=== PATIENT | male | born 1940 | race Caucasian/White ===

== ENCOUNTER 2021-02-24 15:00 | Outpatient (RCR) | payer MEDICARE, SELFPAY ==
[2021-02-03 10:43] VITALS: BP 174/93; PULSE 79; RESP 18; TEMP 36.1
--- NOTE | 2021-02-03 13:07 | HP.PCM_ITS ---
History of Present Illness Date of Service: 02/03/21 Chief Complaint: Nonhealing venous leg ulcers right lower extremity and left foot History of Wound: This is an 80-year-old male who presents to the wound healing center today with complaint of nonhealing bilateral lower extremity ulcers. He does have a past medical history significant for CAD, hyperlipidemia, hypertension, and hypothyroidism. He states that his wounds to his bilateral lower extremities have been present since August 2020 after he was on a blood thinner for recurrent DVT and fell. He states that he was taken off the blood thinner and is now on aspirin 325 mg daily and has had issues with his ulcers to his lower extremities not healing. He also brings up worsening lower extremity edema that now goes up into his thighs. He states that he is more short of breath with exertion and he notes orthopnea as well. 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 He states he is consistent with his Lasix therapy. He denies any other acute concerns. For wound care he has been utilizing covering the site with Neosporin, gauze, and Umesh wraps. He notes a large amount of clear drainage. Past medical, family, and social history reviewed and not pertinent to the current visit and all other systems reviewed and negative with exception of those listed above. [facility] Medical History (Updated 02/03/21 @ 13:22 by Vance Her NP, [employer]) Bilateral lower extremity edema Non-healing ulcer of left foot Venous ulcer of right leg Social History Smoking Status: Never smoker ROS ROS Narrative Negative x10 systems with exception of those listed above Vital Signs Vital Signs Vital Signs: 02/03/21 10:43 Temperature 97.0 F L Temperature Source Temporal Pulse Rate 79 Respiratory Rate 18 Blood Pressure 174/93 H Blood Pressure Mean 120 Blood Pressure Source Monitor Blood Pressure Position Sitting Blood Pressure Location Left Arm Oxygen Delivery Method Room Air Physical Exam Const alert, oriented x3, no apparent distress, healthy appearing and well nourished General Appearance: cooperative Exam Limitations: no limitations HEENT normocephalic Head and Scalp: normal to inspection Mouth: oral and palatal mucosa normal Eyes General Eye: normal appearance of both eyes Resp normal air movement Effort and Inspection: able to speak in complete sentences Auscultation: crackles bilateral Cardio regular rate, regular rhythm, S1 normal heart sound, S2 normal heart sound, no murmurs and peripheral pulses 2+ throughout Palpation: normal PMI Rate: regular rate Heart Sounds: S1 normal and S2 normal GI normal to inspection, nondistended, normoactive bowel sounds, soft to palpation, non-tender and non-distended Palpation: soft Extremity normal to inspection and full ROM General Extremity: normal exam except as noted Skin Skin Narrative: 4+ pitting edema to the bilateral lower extremities which extends above the knees, wounds present to the right lower extremity and left dorsal foot with large amount of adherent slough and there is undermining present as well, no surrounding erythema but there is large amounts of serous drainage. Chronic venous changes present to bilateral lower extremities as well. Dorsal pedis pulses present 2+ Neuro oriented x3 and moves all extremities Sensorium / Orientation: awake, alert, oriented to person, oriented to place and oriented to time Psych mental status grossly normal, thought process normal and denies hallucinations Appearance: grossly normal Attitude: calm Activity / Motor Behavior: appropriate eye contact Speech: normal speech Thought Process: normal thought process Thought Content: normal thought content Attention / Concentration: attention grossly intact Insight: insight good Judgement: judgement good Debridement Note Debridement Note Post-Debridement Measurements and Additional Note: Post-Debridement Measurements/Treatment - Nurse 1 - General Ulcer Assessment Start: 02/03/21 10:41 Freq: Status: Active Protocol: BENJA Activity Type Activity Date Activity User E-Sign Co-Sign Detail Recorded Client Recorded Date Recorded By Document 02/03/21 10:43 IL [id number] 02/03/21 10:52 [place] 02/03/21 10:43 - Today's Visit Information Type of service Initial Visit Arrival Mode Walker Accompanied by self Patient Identification Verified (Name & Yes ) Safety Precautions Fall Prevention Vital Signs Temperature (97.8 F-99.1 F) 97.0 F L Temperature Source Temporal Pulse Rate (60-100) 79 Pulse Location Monitor Respiratory Rate (12-18) 18 Respiratory rate source Observation Oxygen Delivery Method Room Air Blood Pressure (90/60-120/80) 174/93 H Blood Pressure Mean 120 Source Monitor Position Sitting Blood Pressure Location Left Arm History Since Last Visit- (Skip if this is Patient's initial visit) Left Footwear Slipper Right Footwear Slipper - Nurse 1 - General Ulcer Measurement Start: 02/03/21 10:41 Freq: Status: Active Protocol: Activity Type Activity Date Activity User E-Sign Co-Sign Detail Recorded Client Recorded Date Recorded By Document 02/03/21 10:43 IL [id number] 02/03/21 10:52 [place] 02/03/21 10:43 Wound Center Nurse 1 #2 Left dorsal foot -Current Size (cm) - Length 2 -Current Size (cm) - Width 2.6 -Current Size (cm) - Depth 0.1 -Total Square Cm 5.2 -Date of Last Picture (Recall this 02/03/21 field) -Photo Taken Yes -Epithelialization None Present -Tunneling No -Exudate Amt Medium -Exudate Type Serosanguineous -Wound Margin Flat & Intact -Granulation Amt Large (67-100%) -Granulation Quality Pale,[place] -Necrosis Amt Small (1-33%) -Necrotic Tissue Type Adherent Slough -Texture (Nicolasa-wound Skin Appearance) Assessed, Localized Edema -Moisture (Nicolasa-wound Skin Appearance) Assessed, Maceration -Color (Nicolasa-wound Skin Appearance) Assessed -Temperature (Nicolasa-wound Skin No Abnormality Appearance) (Pt Warm) -Tenderness on Palpation (Nicolasa-wound No Skin Appearance) -Ulcer Cleansing Wound Cleanser -Foul Odor after Cleansing No -Anesthetic Used 4% Lidocaine Solution #1 Right Knee -Current Size (cm) - Length 3.5 -Current Size (cm) - Width 3.5 -Current Size (cm) - Depth 0.1 -Total Square Cm 12.25 -Date of Last Picture (Recall this 02/03/21 field) -Photo Taken Yes -Tunneling Position (O'clock) 10 -Tunneling Distance (cm) 1.3 -Tunneling Position #2 (O'clock) 2 -Tunneling Distance #2 (cm) 0.5 -Exudate Amt Medium -Exudate Type Serosanguineous -Wound Margin Flat & Intact -Granulation Amt Large (67-100%) -Granulation Quality Pale,[place] -Necrosis Amt Small (1-33%) -Necrotic Tissue Type Adherent Slough -Texture (Nicolasa-wound Skin Appearance) Assessed, Localized Edema -Moisture (Nicolasa-wound Skin Appearance) Assessed -Color (Nicolasa-wound Skin Appearance) Assessed -Temperature (Nicolasa-wound Skin No Abnormality Appearance) (Pt Warm) -Tenderness on Palpation (Nicolasa-wound No Skin Appearance) -Ulcer Cleansing Wound Cleanser -Foul Odor after Cleansing No -Anesthetic Used 4% Lidocaine Solution Lower Limb Edema Present Yes Right Calf (cm) 53.5 Right Ankle (cm) 30 Left Calf (cm) 50.5 Left Ankle (cm) 30 WC - Nurse 2 - General Ulcer CM Notes Start: 02/03/21 10:41 Freq: Status: Active Protocol: Activity Type Activity Date Activity User E-Sign Co-Sign Detail Recorded Client Recorded Date Recorded By Document 02/03/21 12:38 PL [id number] 02/03/21 12:40 PL 02/03/21 12:38 Wound Center Nurse 2 #2 Left dorsal foot -Time 11:03 -Correct Patient Yes -Correct Side, Site, Position Yes -Correct Procedure Yes -Procedure Performed Yes -Type of Procedure Debridement -Clinical Debridement Subcutaneous -Tissue Removed Subcutaneous -Post Debridement (cm) - Length 2.3 -Post Debridement (cm) - Width 2.7 -Post Debridement (cm) - Depth 0.6 -Total Square (Post) (cm) 6.21 -Area of Debridement (cm) - Length 2.3 -Area of Debridement (cm) - Width 2.7 -Total Square (Area) (cm) 6.21 -Undermining/Tunneling No -Undermining/Tunneling Starts (O'clock 1 ) -Undermining/Tunneling Ends (O'clock) 1 -Maximum Distance (cm) 1.0 -Circular Undermining No -Wound/Ulcer Outcome Not Healed -Ulcer Cleansing Rinsed/ Irrigated with Saline -Foul Odor after Cleansing No -Bioengineered Tissue No -Debridement - Subq, 1st 20sq cm Yes #1 Right Knee -Time 11:03 -Correct Patient Yes -Correct Side, Site, Position Yes -Correct Procedure Yes -Procedure Performed Yes -Type of Procedure Debridement -Clinical Debridement Subcutaneous -Tissue Removed Subcutaneous -Post Debridement (cm) - Length 3.7 -Post Debridement (cm) - Width 3.5 -Post Debridement (cm) - Depth 0.9 -Total Square (Post) (cm) 12.95 -Area of Debridement (cm) - Length 3.7 -Area of Debridement (cm) - Width 3.5 -Total Square (Area) (cm) 12.95 -Tunneling No -Undermining/Tunneling No -Circular Undermining No -Wound/Ulcer Outcome Not Healed -Ulcer Cleansing Rinsed/ Irrigated with Saline -Foul Odor after Cleansing No -Bioengineered Tissue No -Debridement - Subq, 1st 20sq cm No Pain Scale: 0-10 Numeric Is Patient Pain Free? Yes WC - Nurse 3 - General Ulcer D/C NN Start: 02/03/21 10:41 Freq: Status: Active Protocol: Activity Type Activity Date Activity User E-Sign Co-Sign Detail Recorded Client Recorded Date Recorded By Document 02/03/21 11:24 ML [id number] 02/03/21 11:38 ML 02/03/21 11:24 Wound Care Nurse 3 #2 Left dorsal foot -Ulcer Cleansing Rinsed/ Irrigated with Saline -Foul Odor after Cleansing No -Primary Dressing Applied Silvercel -Primary Dressing Covered/Secured with Dry Gauze, Secured with Tape -Silvercel 1 #1 Right Knee -Ulcer Cleansing Rinsed/ Irrigated with Saline -Foul Odor after Cleansing No -Primary Dressing Applied Silvercel -Primary Dressing Covered/Secured with Dry Gauze & Roll Gauze, Secured with Tape -Silvercel 0 Right -Size of Tubigrip Used Size F -Size F ($) 2 Left -Tubular Bandage Double Layer -Size of Tubigrip Used Size F -Size F ($) 2 WC - Visit Discharge Discharge Condition Stable Ambulatory Status Ambulatory Medication Reconcilliation completed & No provided to patient/care provider Clinical Summary of Care Provided Yes Additional Wound Wound debrided: Right venous leg ulcer, left foot ulcer Type of Debridement: Excisional debridement Anesthesia Used: 5% Lidocaine Gel Depth: Down to and including healthy tissue and in the subcutaneous layer Percentage of wound debrided: 100 Instrument Used: 5mm curette Tissue Removed: Slough and devitalized tissue Severity: Fat Layer Exposed Amount of bleeding with debridement: Mild Bleeding Controlled with: Pressure Patient tolerated procedure: Patient tolerated procedure well Charges/Coding Visit Charges Office Visits / Consults: [id number] OV L4 Est Procedures Integumentary [id number]: [id number] Marnie subq tissue 20 sq cm/< Assessment/Plan Assessment/Plan (1) Venous ulcer of right leg: CODE(S): I83.019 - Varicose veins of right lower extremity with ulcer of unspecified site; L97.919 - Non-pressure chronic ulcer of unspecified part of right lower leg with unspecified severity (2) Non-healing ulcer of left foot: CODE(S): L97.529 - Non-pressure chronic ulcer of other part of left foot with unspecified severity (3) Bilateral lower extremity edema: CODE(S): R60.0 - Localized edema (4) CAD (coronary artery disease): CODE(S): I25.10 - Atherosclerotic heart disease of [place] coronary artery without angina pectoris (5) Hyperlipidemia: CODE(S): E78.5 - Hyperlipidemia, unspecified (6) Benign essential hypertension: CODE(S): I10 - Essential (primary) hypertension PLAN: Debridement performed today in clinic as annotated above. Silver cell applied. At home wound-care instructions: Silver cell moistened cover with gauze, Change dressing once daily or more frequently as needed due to contamination. Wash wounds daily with antibacterial soap and water, rinse and dry thoroughly before each dressing change. Compression: Double layer Tubigrip's for compression Off-loading: The patient was instructed to avoid pressure and friction on the affected areas. Reposition every 2 hours at minimum. Avoid prolonged standing and/or dangling of legs. When seated, feet should be elevated at chest level. Frequent ambulation is encouraged. Diet: Patient encouraged to increase protein intake while taking caution to avoid high carbohydrate and/or sugar intake. Patient is a non-smoker Labs/cultures/imaging: Cultures ordered and collected today. Routine baseline lab work ordered, BNP ordered. Vascular studies ordered. Follow-up: Return to clinic in 1 week for re-evaluation. Given the fact that patient is complaining of orthopnea, worsening lower extremity edema, and also worsening shortness of breath I am concerned that his symptoms may be cardiac related, his blood pressure was also elevated at 170/93. He was referred to the emergency department. He states that he will have someone take him to [facility]. Return sooner or report to the emergency room should symptoms worsen, or new symptoms arise. This note was generated with [employer] dictation software. It may contain incorrect words, spelling, and punctuation that were not noted in checking the note before signing. I have spent 55 minutes today reviewing labs, records, and history. Time includes coordinating care, interpretation of tests, and counseling the patient/family. This also includes time I spent with the patient for exam, treatment plan, and education as well as documenting clinical information in the electronic health record.
[2021-02-10 13:25] VITALS: BP 174/85; PULSE 89; RESP 19; TEMP 36.7
--- NOTE | 2021-02-10 15:28 | PN.PCM_ITS ---
History of Present Illness Date of Service: 02/10/21 Chief Complaint: Nonhealing venous leg ulcers right lower extremity and left foot History of Wound: This is an 80-year-old male who presents to the wound healing center today with complaint of nonhealing bilateral lower extremity ulcers. He does have a past medical history significant for CAD, hyperlipidemia, hypertension, and hypothyroidism. He states that his wounds to his bilateral lower extremities have been present since August 2020 after he was on a blood thinner for recurrent DVT and fell. He states that he was taken off the blood thinner and is now on aspirin 325 mg daily and has had issues with his ulcers to his lower extremities not healing. He also brings up worsening lower extremity edema that now goes up into his thighs. He states that he is more short of breath with exertion and he notes orthopnea as well. He denies any history of CHF but does state that he has followed up with cardiology in the past for a prior PR. He states he is consistent with his Lasix therapy. He denies any other acute concerns. For wound care he has been utilizing covering the site with Neosporin, gauze, and Umesh wraps. He notes a large amount of clear drainage. Past medical, family, and social history reviewed and not pertinent to the current visit and all other systems reviewed and negative with exception of those listed above. Progress of Wound: Stable?no new concerns, patient did not follow-up with the emergency department for his hypertension and orthopnea and increase in swelling and instead follow-up with his primary care who placed him on Aldactone. He does note that his lower extremity swelling and drainage has improved somewhat, wounds are stable with slight improvement, wound cultures were reviewed and just showed rare bacteria Objective Data Objective Data Vital Signs: Vital Signs Temp Pulse Resp BP 98.0 F 89 19 H 174/85 H 02/10/21 13:25 02/10/21 13:25 02/10/21 13:25 02/10/21 13:25 Oxygen Delivery Method Room Air Lab / Micro Data Micro: Microbiology 02/03/21 11:10 Wound - Leg, Right Gram Stain - Final 02/03/21 11:10 Wound - Leg, Right Wound Culture - Final Enterobacter cloacae complex Staphylococcus epidermidis Corynebacterium striatum 02/03/21 11:10 Wound - Leg, Right Anaerobic Culture - Final No anaerobic bacteria isolated. Charges/Coding Procedures Integumentary 111xxx-113xx: 14191 Marnie subq tissue 20 sq cm/< Physical Exam Const alert, oriented x3, no apparent distress, healthy appearing and well nourished General Appearance: cooperative Exam Limitations: no limitations HEENT normocephalic Head and Scalp: normal to inspection Mouth: oral and palatal mucosa normal Eyes General Eye: normal appearance of both eyes Resp normal air movement Effort and Inspection: able to speak in complete sentences Auscultation: crackles bilateral Cardio regular rate, regular rhythm, S1 normal heart sound, S2 normal heart sound, no murmurs and peripheral pulses 2+ throughout Palpation: normal PMI Rate: regular rate Heart Sounds: S1 normal and S2 normal GI normal to inspection, nondistended, normoactive bowel sounds, soft to palpation, non-tender and non-distended Palpation: soft Extremity normal to inspection and full ROM General Extremity: normal exam except as noted Skin Skin Narrative: 4+ pitting edema to the bilateral lower extremities which extends above the knees, wounds present to the right lower extremity and left dorsal foot with large amount of adherent slough and there is undermining present as well, no surrounding erythema but there is large amounts of serous drainage. Chronic venous changes present to bilateral lower extremities as well. Dorsal pedis pulses present 2+ Neuro oriented x3 and moves all extremities Sensorium / Orientation: awake, alert, oriented to person, oriented to place and oriented to time Psych mental status grossly normal, thought process normal and denies hallucinations Appearance: grossly normal Attitude: calm Activity / Motor Behavior: appropriate eye contact Speech: normal speech Thought Process: normal thought process Thought Content: normal thought content Attention / Concentration: attention grossly intact Insight: insight good Judgement: judgement good Debridement Note Debridement Note Post-Debridement Measurements and Additional Note: Post-Debridement Measurements/Treatment - Nurse 1 - General Ulcer Assessment Start: 02/03/21 10:41 Freq: Status: Active Protocol: BENJA Activity Type Activity Date Activity User E-Sign Co-Sign Detail Recorded Client Recorded Date Recorded By Document 02/03/21 10:43 MT [id number] 02/03/21 10:52 WI Document 02/10/21 13:25 ML [id number] 02/10/21 13:46 ML 02/03/21 02/10/21 10:43 13:25 - Today's Visit Information Type of service Initial Visit Follow-up Visit (Physician/SUGAR [employer]ER ) Arrival Mode Walker Walker, Wheelchair Transfer Assistance None Accompanied by self Patient Identification Verified (Name & Yes Yes ) Patient Requires Transmission-Based No Precautions Safety Precautions Fall Prevention NA Vital Signs Temperature (97.8 F-99.1 F) 97.0 F L 98.0 F Temperature Source Temporal Temporal Pulse Rate (60-100) 79 89 Pulse Location Monitor Monitor Respiratory Rate (12-18) 18 19 H Respiratory rate source Observation Observation Oxygen Delivery Method Room Air Blood Pressure (90/60-120/80) 174/93 H 174/85 H Blood Pressure Mean (mm Hg) 120 114 Source Monitor Monitor Position Sitting Sitting Blood Pressure Location Left Arm Right Arm Have you changed medications since your Yes last visit? Any new allergies or adverse reactions No Had a fall/change in ADL's that may No increase risk of falls Signs or symptoms of abuse and/or No neglect since last visit Have you been in the hospital since your No last visit? Has dressing in place as prescribed Yes Has compression in place as prescribed Yes Has offloadiing in place as prescribed N/A Experienced any changes in pain level or No management History Since Last Visit- (Skip if this is Patient's initial visit) Left Footwear Slipper Slipper Right Footwear Slipper Slipper Pain Scale: 0-10 Numeric Is Patient Pain Free? Yes WC - Nurse 1 - General Ulcer Measurement Start: 02/03/21 10:41 Freq: Status: Active Protocol: Activity Type Activity Date Activity User E-Sign Co-Sign Detail Recorded Client Recorded Date Recorded By Document 02/03/21 10:43 WI [id number] 02/03/21 10:52 WI Document 02/10/21 13:25 ML [id number] 02/10/21 13:46 ML 02/03/21 02/10/21 10:43 13:25 Wound Center Nurse 1 #2 Left dorsal foot -Current Size (cm) - Length 2 2.5 -Current Size (cm) - Width 2.6 2.8 -Current Size (cm) - Depth 0.1 0.3 -Total Square Cm 5.2 7.00 -Date of Last Picture (Recall this 02/03/21 field) -Photo Taken Yes -Epithelialization None Present -Tunneling No -Exudate Amt Medium Medium -Exudate Type Serosanguineous Serosanguineous -Wound Margin Flat & Intact Distinct, Outline Attached -Granulation Amt Large (67-100%) Medium (34-66%) -Granulation Quality Pale,[place] -Slough/Fibrin Yes -Necrosis Amt Small (1-33%) Medium (34-66%) -Necrotic Tissue Type Adherent Slough Adherent Slough -Texture (Nicolasa-wound Skin Appearance) Assessed, Assessed Localized Edema -Moisture (Nicolasa-wound Skin Appearance) Assessed, Assessed Maceration -Color (Nicolasa-wound Skin Appearance) Assessed Assessed -Temperature (Nicolasa-wound Skin No Abnormality No Abnormality Appearance) (Pt Warm) (Pt Warm) -Tenderness on Palpation (Nicolasa-wound No No Skin Appearance) -Ulcer Cleansing Wound Cleanser Wound Cleanser -Foul Odor after Cleansing No -Anesthetic Used 4% Lidocaine 4% Lidocaine Solution Solution #1 Right Knee -Current Size (cm) - Length 3.5 2.3 -Current Size (cm) - Width 3.5 2.5 -Current Size (cm) - Depth 0.1 0.2 -Total Square Cm 12.25 5.75 -Date of Last Picture (Recall this 02/03/21 field) -Photo Taken Yes -Tunneling Position (O'clock) 10 -Tunneling Distance (cm) 1.3 -Tunneling Position #2 (O'clock) 2 -Tunneling Distance #2 (cm) 0.5 -Exudate Amt Medium Medium -Exudate Type Serosanguineous Serosanguineous -Wound Margin Flat & Intact Distinct, Outline Attached -Granulation Amt Large (67-100%) Medium (34-66%) -Granulation Quality Pale,[place] -Slough/Fibrin Yes -Necrosis Amt Small (1-33%) Medium (34-66%) -Necrotic Tissue Type Adherent Slough Adherent Slough -Texture (Nicolasa-wound Skin Appearance) Assessed, Not Assessed Localized Edema -Moisture (Nicolasa-wound Skin Appearance) Assessed Assessed -Color (Nicolasa-wound Skin Appearance) Assessed -Temperature (Nicolasa-wound Skin No Abnormality Appearance) (Pt Warm) -Tenderness on Palpation (Nicolasa-wound No Skin Appearance) -Ulcer Cleansing Wound Cleanser -Foul Odor after Cleansing No -Anesthetic Used 4% Lidocaine Solution Lower Limb Edema Present Yes Right Calf (cm) 53.5 47 Right Ankle (cm) 30 31 Left Calf (cm) 50.5 36.5 Left Ankle (cm) 30 32 WC - Nurse 2 - General Ulcer CM Notes Start: 02/03/21 10:41 Freq: Status: Active Protocol: Activity Type Activity Date Activity User E-Sign Co-Sign Detail Recorded Client Recorded Date Recorded By Document 02/03/21 12:38 PL [id number] 02/03/21 12:40 PL Document 02/10/21 15:24 PL [id number] 02/10/21 15:28 PL 02/03/21 02/10/21 12:38 15:24 Wound Center Nurse 2 #2 Left dorsal foot -Time 11:03 13:55 -Correct Patient Yes Yes -Correct Side, Site, Position Yes Yes -Correct Procedure Yes Yes -Procedure Performed Yes Yes -Type of Procedure Debridement Debridement -Clinical Debridement Subcutaneous Subcutaneous -Tissue Removed Subcutaneous Subcutaneous -Post Debridement (cm) - Length 2.3 2.0 -Post Debridement (cm) - Width 2.7 2.5 -Post Debridement (cm) - Depth 0.6 0.5 -Total Square (Post) (cm) 6.21 5.00 -Area of Debridement (cm) - Length 2.3 2.0 -Area of Debridement (cm) - Width 2.7 0.5 -Total Square (Area) (cm) 6.21 1.00 -Tunneling No -Undermining/Tunneling No No -Undermining/Tunneling Starts (O'clock 1 ) -Undermining/Tunneling Ends (O'clock) 1 -Maximum Distance (cm) 1.0 -Circular Undermining No No -Wound/Ulcer Outcome Not Healed Not Healed -Ulcer Cleansing Rinsed/ Rinsed/ Irrigated with Irrigated with Saline Saline -Foul Odor after Cleansing No No -Bioengineered Tissue No No -Bleeding Controlled with Pressure -Treatment Response Procedure Tolerated Well -Debridement - Subq, 1st 20sq cm Yes Yes #1 Right Knee -Time 11:03 13:55 -Correct Patient Yes Yes -Correct Side, Site, Position Yes Yes -Correct Procedure Yes Yes -Procedure Performed Yes Yes -Type of Procedure Debridement Debridement -Clinical Debridement Subcutaneous Subcutaneous -Tissue Removed Subcutaneous Subcutaneous -Post Debridement (cm) - Length 3.7 3.7 -Post Debridement (cm) - Width 3.5 3.7 -Post Debridement (cm) - Depth 0.9 0.5 -Total Square (Post) (cm) 12.95 13.69 -Area of Debridement (cm) - Length 3.7 3.7 -Area of Debridement (cm) - Width 3.5 3.7 -Total Square (Area) (cm) 12.95 13.69 -Tunneling No Yes -Tunneling Position (O'clock) 11 -Tunneling Distance (cm) 2.0 -Undermining/Tunneling No No -Circular Undermining No No -Wound/Ulcer Outcome Not Healed Not Healed -Ulcer Cleansing Rinsed/ Rinsed/ Irrigated with Irrigated with Saline Saline -Foul Odor after Cleansing No No -Bioengineered Tissue No No -Bleeding Controlled with Pressure -Treatment Response Procedure Tolerated Well -Debridement - Subq, 1st 20sq cm No No Pain Scale: 0-10 Numeric Is Patient Pain Free? Yes Yes WC - Nurse 3 - General Ulcer D/C NN Start: 02/03/21 10:41 Freq: Status: Active Protocol: Activity Type Activity Date Activity User E-Sign Co-Sign Detail Recorded Client Recorded Date Recorded By Document 02/03/21 11:24 ML [id number] 02/03/21 11:38 ML Document 02/10/21 14:09 ML [id number] 02/10/21 14:11 ML 02/03/21 02/10/21 11:24 14:09 Wound Care Nurse 3 #2 Left dorsal foot -Ulcer Cleansing Rinsed/ Rinsed/ Irrigated with Irrigated with Saline Saline -Foul Odor after Cleansing No No -Primary Dressing Applied Silvercel Silvercel -Primary Dressing Covered/Secured with Dry Gauze, Dry Gauze, Secured with Secured with Tape Tape -Silvercel 1 1 #1 Right Knee -Ulcer Cleansing Rinsed/ Rinsed/ Irrigated with Irrigated with Saline Saline -Foul Odor after Cleansing No No -Primary Dressing Applied Silvercel Silvercel -Primary Dressing Covered/Secured with Dry Gauze & Dry Gauze & Roll Gauze, Roll Gauze, Secured with Secured with Tape Tape -Silvercel 0 0 Right -Size of Tubigrip Used Size F Size E -Size F ($) 2 Left -Tubular Bandage Double Layer Double Layer -Size of Tubigrip Used Size F Size E -Size E ($) 2 -Size F ($) 2 WC - Visit Discharge Discharge Condition Stable Stable Ambulatory Status Ambulatory Walker, Wheelchair Medication Reconcilliation completed & No No provided to patient/care provider Clinical Summary of Care Provided Yes Yes Additional Wound Wound debrided: Venous leg ulcer right lower extremity, venous leg ulcer left foot Type of Debridement: Excisional debridement Anesthesia Used: 5% Lidocaine Gel Depth: in the subcutaneous layer Percentage of wound debrided: 100 Instrument Used: 5mm curette Tissue Removed: Slough devitalized tissue Severity: Fat Layer Exposed Amount of bleeding with debridement: Mild Bleeding Controlled with: Pressure Patient tolerated procedure: Patient tolerated procedure well Assessment/Plan Assessment/Plan (1) Venous ulcer of right leg: CODE(S): I83.019 - Varicose veins of right lower extremity with ulcer of unspecified site; L97.919 - Non-pressure chronic ulcer of unspecified part of right lower leg with unspecified severity (2) Non-healing ulcer of left foot: CODE(S): L97.529 - Non-pressure chronic ulcer of other part of left foot with unspecified severity (3) Bilateral lower extremity edema: CODE(S): R60.0 - Localized edema (4) CAD (coronary artery disease): CODE(S): I25.10 - Atherosclerotic heart disease of [place] coronary artery without angina pectoris (5) Hyperlipidemia: CODE(S): E78.5 - Hyperlipidemia, unspecified (6) Benign essential hypertension: CODE(S): I10 - Essential (primary) hypertension PLAN: Debridement performed today in clinic as annotated above. Silver cell applied. At home wound-care instructions: Silver cell moistened cover with gauze, Change dressing once daily or more frequently as needed due to contamination. Wash wo unds daily with antibacterial soap and water, rinse and dry thoroughly before each dressing change. Compression: Double layer Tubigrip's for compression Off-loading: The patient was instructed to avoid pressure and friction on the affected areas. Reposition every 2 hours at minimum. Avoid prolonged standing and/or dangling of legs. When seated, feet should be elevated at chest level. Frequent ambulation is encouraged. Diet: Patient encouraged to increase protein intake while taking caution to avoid high carbohydrate and/or sugar intake. Patient is a non-smoker Labs/cultures/imaging: Cultures ordered and collected today. Routine baseline lab work ordered, BNP ordered, both blood work is still pending at this time. Vascular studies ordered. Follow-up: Return to clinic in 1 week for re-evaluation. Wound cultures were reviewed and showed rare bacteria, no indication for any changes in therapy at this time return sooner or report to the emergency room should symptoms worsen, or new symptoms arise. This note was generated with [employer] dictation software. It may contain incorrect words, spelling, and punctuation that were not noted in checking the note before signing. I have spent 55 minutes today reviewing labs, records, and history. Time includes coordinating care, interpretation of tests, and counseling the patient/family. This also includes time I spent with the patient for exam, treatment plan, and education as well as documenting clinical information in the electronic health record.
[2021-02-17 15:08] VITALS: BP 161/93; PULSE 81; RESP 20; TEMP 37.1
--- NOTE | 2021-02-17 19:04 | PN.PCM_ITS ---
History of Present Illness Date of Service: 02/18/21 Chief Complaint: Nonhealing venous leg ulcers right lower extremity and left foot History of Wound: This is an 80-year-old male who presents to the wound healing center today with complaint of nonhealing bilateral lower extremity ulcers. He does have a past medical history significant for CAD, hyperlipidemia, hypertension, PVD,and hypothyroidism. He states that his wounds to his bilateral lower extremities have been present since August 2020 after he was on a blood thinner for recurrent DVT and fell. He states that he was taken off the blood thinner and is now on aspirin 325 mg daily and has had issues with his ulcers to his lower extremities not healing. He also brings up worsening lower extremity edema that now goes up into his thighs. He states that he is more short of breath with exertion and he notes orthopnea as well. He denies any history of CHF but does state that he has followed up with cardiology in the past for a prior ND. He states he is consistent with his Lasix therapy. He denies any other acute concerns. For wound care he has been utilizing covering the site with Neosporin, gauze, and Umesh wraps. He notes a large amount of clear drainage. Past medical, family, and social history reviewed and not pertinent to the current visit and all other systems reviewed and negative with exception of those listed above. Progress of Wound: Stable?no new concerns, patient did follow-up with his primary care who placed him on Aldactone. He does note that his lower extremity swelling and drainage has improved somewhat, wounds are stable with slight improvement, wound cultures were reviewed and just showed rare bacteria Objective Data Objective Data Vital Signs: Vital Signs Temp Pulse Resp BP 98.7 F 81 20 H 161/93 H 02/17/21 15:08 02/17/21 15:08 02/17/21 15:08 02/17/21 15:08 Oxygen Delivery Method Room Air Lab / Micro Data Micro: Microbiology 02/03/21 11:10 Wound - Leg, Right Gram Stain - Final 02/03/21 11:10 Wound - Leg, Right Wound Culture - Final Enterobacter cloacae complex Staphylococcus epidermidis Corynebacterium striatum 02/03/21 11:10 Wound - Leg, Right Anaerobic Culture - Final No anaerobic bacteria isolated. Charges/Coding Procedures Integumentary [id number]: [id number] Marnie subq tissue 20 sq cm/< Physical Exam Const alert, oriented x3, no apparent distress, healthy appearing and well nourished General Appearance: cooperative Exam Limitations: no limitations HEENT normocephalic Head and Scalp: normal to inspection Mouth: oral and palatal mucosa normal Eyes General Eye: normal appearance of both eyes Resp normal air movement Effort and Inspection: able to speak in complete sentences Auscultation: crackles bilateral Cardio regular rate, regular rhythm, S1 normal heart sound, S2 normal heart sound, no murmurs and peripheral pulses 2+ throughout Palpation: normal PMI Rate: regular rate Heart Sounds: S1 normal and S2 normal GI normal to inspection, nondistended, normoactive bowel sounds, soft to palpation, non-tender and non-distended Palpation: soft Extremity normal to inspection and full ROM General Extremity: normal exam except as noted Skin Skin Narrative: 2+ pitting edema to the bilateral lower extremities which extends below the knees, wounds present to the right lower extremity and left dorsal foot with large amount of adherent slough and there is undermining present as well, no surrounding erythema but there is large amounts of serous drainage. Chronic venous changes present to bilateral lower extremities as well. Dorsal pedis pulses present 2+ Neuro oriented x3 and moves all extremities Sensorium / Orientation: awake, alert, oriented to person, oriented to place and oriented to time Psych mental status grossly normal, thought process normal and denies hallucinations Appearance: grossly normal Attitude: calm Activity / Motor Behavior: appropriate eye contact Speech: normal speech Thought Process: normal thought process Thought Content: normal thought content Attention / Concentration: attention grossly intact Insight: insight good Judgement: judgement good Debridement Note Debridement Note Post-Debridement Measurements and Additional Note: Post-Debridement Measurements/Treatment - Nurse 1 - General Ulcer Assessment Start: 02/03/21 10:41 Freq: Status: Active Protocol: BENJA Activity Type Activity Date Activity User E-Sign Co-Sign Detail Recorded Client Recorded Date Recorded By Document 02/03/21 10:43 MT [id number] 02/03/21 10:52 MT Document 02/10/21 13:25 ML [id number] 02/10/21 13:46 ML Document 02/17/21 15:08 DL [id number] 02/17/21 15:23 DL 02/03/21 02/10/21 02/17/21 10:43 13:25 15:08 - Today's Visit Information Type of service Initial Visit Follow-up Visit Follow-up Visit (Physician/REAL ESTATE TEACHER (Physician/REAL ESTATE TEACHER ) ) Arrival Mode Walker Walker, Ambulatory, Wheelchair Walker Transfer Assistance None None Accompanied by self Patient Identification Verified (Name & Yes Yes Yes ) Patient Requires Transmission-Based No No Precautions Safety Precautions Fall Prevention NA Vital Signs Temperature (97.8 F-99.1 F) 97.0 F L 98.0 F 98.7 F Temperature Source Temporal Temporal Temporal Pulse Rate (60-100) 79 89 81 Pulse Location Monitor Monitor Monitor Respiratory Rate (12-18) 18 19 H 20 H Respiratory rate source Observation Observation Observation Oxygen Delivery Method Room Air Blood Pressure (90/60-120/80) 174/93 H 174/85 H 161/93 H Blood Pressure Mean (mm Hg) 120 114 115 Source Monitor Monitor Monitor Position Sitting Sitting Blood Pressure Location Left Arm Right Arm Have you changed medications since your Yes No last visit? Any new allergies or adverse reactions No No Had a fall/change in ADL's that may No No increase risk of falls Signs or symptoms of abuse and/or No No neglect since last visit Have you been in the hospital since your No No last visit? Has dressing in place as prescribed Yes Yes Has compression in place as prescribed Yes Yes Has offloadiing in place as prescribed N/A N/A Experienced any changes in pain level or No No management History Since Last Visit- (Skip if this is Patient's initial visit) Left Footwear Slipper Slipper Right Footwear Slipper Slipper Pain Scale: 0-10 Numeric Is Patient Pain Free? Yes Yes - Nurse 1 - General Ulcer Measurement Start: 02/03/21 10:41 Freq: Status: Active Protocol: Activity Type Activity Date Activity User E-Sign Co-Sign Detail Recorded Client Recorded Date Recorded By Document 02/03/21 10:43 MT [id number] 02/03/21 10:52 MT Document 02/10/21 13:25 ML [id number] 02/10/21 13:46 ML Document 02/17/21 15:08 DL [id number] 02/17/21 15:23 DL 02/03/21 02/10/21 02/17/21 10:43 13:25 15:08 Wound Center Nurse 1 #2 Left dorsal foot -Current Size (cm) - Length 2 2.5 1.2 -Current Size (cm) - Width 2.6 2.8 1 -Current Size (cm) - Depth 0.1 0.3 0.1 -Total Square Cm 5.2 7.00 1.2 -Date of Last Picture (Recall this 02/03/21 field) -Photo Taken Yes No -Epithelialization None Present -Tunneling No -Exudate Amt Medium Medium Small -Exudate Type Serosanguineous Serosanguineous Serosanguineous -Wound Margin Flat & Intact Distinct, Distinct, Outline Outline Attached Attached -Granulation Amt Large (67-100%) Medium (34-66%) Large (67-100%) -Granulation Quality Pale,[place]umwood Red -Slough/Fibrin Yes -Necrosis Amt Small (1-33%) Medium (34-66%) Medium (34-66%) -Necrotic Tissue Type Adherent Slough Adherent Slough Adherent Slough -Structure Exposed N/A -Texture (Nicolasa-wound Skin Appearance) Assessed, Assessed Scarring Localized Edema -Moisture (Nicolasa-wound Skin Appearance) Assessed, Assessed Dry/Scaly Maceration -Color (Nicolasa-wound Skin Appearance) Assessed Assessed Hemosiderin Staining -Temperature (Nicolasa-wound Skin No Abnormality No Abnormality No Abnormality Appearance) (Pt Warm) (Pt Warm) (Pt Warm) -Tenderness on Palpation (Nicolasa-wound No No Skin Appearance) -Ulcer Cleansing Wound Cleanser Wound Cleanser Wound Cleanser -Foul Odor after Cleansing No No -Anesthetic Used 4% Lidocaine 4% Lidocaine 4% Lidocaine Solution Solution Solution #1 Right Knee -Current Size (cm) - Length 3.5 2.3 3.2 -Current Size (cm) - Width 3.5 2.5 2.5 -Current Size (cm) - Depth 0.1 0.2 0.6 -Total Square Cm 12.25 5.75 8.00 -Date of Last Picture (Recall this 02/03/21 field) -Photo Taken Yes No -Tunneling Position (O'clock) 10 -Tunneling Distance (cm) 1.3 -Tunneling Position #2 (O'clock) 2 -Tunneling Distance #2 (cm) 0.5 -Exudate Amt Medium Medium Medium -Exudate Type Serosanguineous Serosanguineous Serosanguineous -Wound Margin Flat & Intact Distinct, Distinct, Outline Outline Attached Attached -Granulation Amt Large (67-100%) Medium (34-66%) Medium (34-66%) -Granulation Quality Pale,[place] Red -Slough/Fibrin Yes -Necrosis Amt Small (1-33%) Medium (34-66%) Medium (34-66%) -Necrotic Tissue Type Adherent Slough Adherent Slough Eschar -Structure Exposed None/Limited to Skin Breakdown -Texture (Nicolasa-wound Skin Appearance) Assessed, Not Assessed Scarring Localized Edema -Moisture (Nicolasa-wound Skin Appearance) Assessed Assessed Dry/Scaly -Color (Nicolasa-wound Skin Appearance) Assessed Hemosiderin Staining -Temperature (Nicolasa-wound Skin No Abnormality No Abnormality Appearance) (Pt Warm) (Pt Warm) -Tenderness on Palpation (Nicolasa-wound No No Skin Appearance) -Ulcer Cleansing Wound Cleanser Rinsed/ Irrigated with Saline -Foul Odor after Cleansing No No -Anesthetic Used 4% Lidocaine 4% Lidocaine Solution Solution Lower Limb Edema Present Yes Right Calf (cm) 53.5 47 40 Right Ankle (cm) 30 31 27.2 Left Calf (cm) 50.5 36.5 38.6 Left Ankle (cm) 30 32 27.2 WC - Nurse 2 - General Ulcer CM Notes Start: 02/03/21 10:41 Freq: Status: Active Protocol: Activity Type Activity Date Activity User E-Sign Co-Sign Detail Recorded Client Recorded Date Recorded By Document 02/03/21 12:38 PL [id number] 02/03/21 12:40 PL Document 02/10/21 15:24 PL [id number] 02/10/21 15:28 PL Document 02/17/21 15:41 DL [id number] 02/17/21 15:45 DL 02/03/21 02/10/21 02/17/21 12:38 15:24 15:41 Wound Center Nurse 2 #2 Left dorsal foot -Time 11:03 13:55 15:42 -Correct Patient Yes Yes Yes -Correct Side, Site, Position Yes Yes Yes -Correct Procedure Yes Yes Yes -Procedure Performed Yes Yes Yes -Type of Procedure Debridement Debridement Debridement -Clinical Debridement Subcutaneous Subcutaneous Subcutaneous -Tissue Removed Subcutaneous Subcutaneous Subcutaneous -Post Debridement (cm) - Length 2.3 2.0 2.0 -Post Debridement (cm) - Width 2.7 2.5 1.0 -Post Debridement (cm) - Depth 0.6 0.5 0.2 -Total Square (Post) (cm) 6.21 5.00 2.00 -Area of Debridement (cm) - Length 2.3 2.0 2.0 -Area of Debridement (cm) - Width 2.7 0.5 1.0 -Total Square (Area) (cm) 6.21 1.00 2.00 -Tunneling No No -Undermining/Tunneling No No No -Undermining/Tunneling Starts (O'clock 1 ) -Undermining/Tunneling Ends (O'clock) 1 -Maximum Distance (cm) 1.0 -Circular Undermining No No No -Wound/Ulcer Outcome Not Healed Not Healed Not Healed -Ulcer Cleansing Rinsed/ Rinsed/ Rinsed/ Irrigated with Irrigated with Irrigated with Saline Saline Saline -Foul Odor after Cleansing No No No -Bioengineered Tissue No No No -Bleeding Controlled with Pressure Pressure -Offloading No -Treatment Response Procedure Procedure Tolerated Well Tolerated Well -Debridement - Subq, 1st 20sq cm Yes Yes Yes #1 Right Knee -Time 11:03 13:55 15:42 -Correct Patient Yes Yes Yes -Correct Side, Site, Position Yes Yes Yes -Correct Procedure Yes Yes Yes -Procedure Performed Yes Yes Yes -Type of Procedure Debridement Debridement Debridement -Clinical Debridement Subcutaneous Subcutaneous Subcutaneous -Tissue Removed Subcutaneous Subcutaneous Subcutaneous -Post Debridement (cm) - Length 3.7 3.7 3.2 -Post Debridement (cm) - Width 3.5 3.7 2.5 -Post Debridement (cm) - Depth 0.9 0.5 0.5 -Total Square (Post) (cm) 12.95 13.69 8.00 -Area of Debridement (cm) - Length 3.7 3.7 3.2 -Area of Debridement (cm) - Width 3.5 3.7 2.5 -Total Square (Area) (cm) 12.95 13.69 8.00 -Tunneling No Yes Yes -Tunneling Position (O'clock) 11 11 -Tunneling Distance (cm) 2.0 2.0 -Tunneling Position #2 (O'clock) 5 -Tunneling Distance #2 (cm) 0.5 -Undermining/Tunneling No No No -Circular Undermining No No No -Wound/Ulcer Outcome Not Healed Not Healed Not Healed -Ulcer Cleansing Rinsed/ Rinsed/ Rinsed/ Irrigated with Irrigated with Irrigated with Saline Saline Saline -Foul Odor after Cleansing No No No -Bioengineered Tissue No No No -Bleeding Controlled with Pressure Pressure -Offloading No -Treatment Response Procedure Procedure Tolerated Well Tolerated Well -Debridement - Subq, 1st 20sq cm No No Yes Pain Scale: 0-10 Numeric Is Patient Pain Free? Yes Yes Yes - Nurse 3 - General Ulcer D/C NN Start: 02/03/21 10:41 Freq: Status: Active Protocol: Activity Type Activity Date Activity User E-Sign Co-Sign Detail Recorded Client Recorded Date Recorded By Document 02/03/21 11:24 ML [id number] 02/03/21 11:38 ML Document 02/10/21 14:09 ML [id number] 02/10/21 14:11 ML Document 02/17/21 16:33 DL [id number] 02/17/21 16:34 DL 02/03/21 02/10/21 02/17/21 11:24 14:09 16:33 Wound Care Nurse 3 #2 Left dorsal foot -Ulcer Cleansing Rinsed/ Rinsed/ Irrigated with Irrigated with Saline Saline -Foul Odor after Cleansing No No -Primary Dressing Applied Silvercel Silvercel Silvercel -Primary Dressing Covered/Secured with Dry Gauze, Dry Gauze, Dry Gauze Secured with Secured with Tape Tape -Silvercel 1 1 1 #1 Right Knee -Ulcer Cleansing Rinsed/ Rinsed/ Wound Cleanser Irrigated with Irrigated with Saline Saline -Foul Odor after Cleansing No No No -Primary Dressing Applied Silvercel Silvercel -Other Dressing silvercell -Primary Dressing Covered/Secured with Dry Gauze & Dry Gauze & Dry Gauze Roll Gauze, Roll Gauze, Secured with Secured with Tape Tape -Silvercel 0 0 Right -Multi-Layered Wrap Application Unna Boot - Bilateral ($) -Unna Boots (Bilat) ($) 2 -Size of Tubigrip Used Size F Size E -Size F ($) 2 Left -Tubular Bandage Double Layer Double Layer -Size of Tubigrip Used Size F Size E -Size E ($) 2 -Size F ($) 2 Pain Scale: 0-10 Numeric Is Patient Pain Free? Yes WC - Visit Discharge Discharge Condition Stable Stable Stable Ambulatory Status Ambulatory Walker, Ambulatory Wheelchair Transportation Private Auto Medication Reconcilliation completed & No No provided to patient/care provider Clinical Summary of Care Provided Yes Yes Additional Wound Wound debrided: Right VL U, left foot ulcer Type of Debridement: Excisional debridement Anesthesia Used: 5% Lidocaine Gel Depth: Down to and including healthy tissue and in the subcutaneous layer Percentage of wound debrided: 100 Instrument Used: 5mm curette Tissue Removed: Slough and devitalized tissue Severity: Fat Layer Exposed Amount of bleeding with debridement: Mild Bleeding Controlled with: Pressure Patient tolerated procedure: Patient tolerated procedure well Assessment/Plan Assessment/Plan (1) Venous stasis ulcer of right lower leg with edema of right lower leg: CODE(S): I83.019 - Varicose veins of right lower extremity with ulcer of unspecified site; I83.891 - Varicose veins of right lower extremity with other complications; L97.919 - Non-pressure chronic ulcer of unspecified part of right lower leg with unspecified severity; R60.9 - Edema, unspecified (2) Venous ulcer of right leg: CODE(S): I83.019 - Varicose veins of right lower extremity with ulcer of unspecified site; L97.919 - Non-pressure chronic ulcer of unspecified part of right lower leg with unspecified severity (3) Non-healing ulcer of left foot: CODE(S): L97.529 - Non-pressure chronic ulcer of other part of left foot with unspecified severity QUALIFIERS: Non-pressure ulcer stage: with fat layer exposed Qualified Code(s): L97.522 - Non-pressure chronic ulcer of other part of left foot with fat layer exposed (4) Bilateral lower extremity edema: CODE(S): R60.0 - Localized edema (5) CAD (coronary artery disease): CODE(S): I25.10 - Atherosclerotic heart disease of [place] coronary artery without angina pectoris (6) Hyperlipidemia: CODE(S): E78.5 - Hyperlipidemia, unspecified (7) Benign essential hypertension: CODE(S): I10 - Essential (primary) hypertension PLAN: Debridement performed today in clinic as annotated above. Silver cell applied. At home wound-care instructions: Silver cell moistened cover with gauze, Change dressing once daily or more frequently as needed due to contamination. Wash wounds daily with antibacterial soap and water, rinse and dry thoroughly before each dressing change. Compression: Unna boots lightly wrapped for compression, patient states that he had vascular studies done at , will request. Off-loading: The patient was instructed to avoid pressure and friction on the affected areas. Reposition every 2 hours at minimum. Avoid prolonged standing and/or dangling of legs. When seated, feet should be elevated at chest level. Frequent ambulation is encouraged. Diet: Patient encouraged to increase protein intake while taking caution to avoid high carbohydrate and/or sugar intake. Patient is a non-smoker Labs/cultures/imaging:. Routine baseline lab work ordered, BNP ordered, both blood work is still pending at this time. Vascular studies ordered. Given the delayed wound healing and fact that this is a venous leg ulcer of the right lower extremity with a known history of PVD, an advanced skin substitute will be ordered. Follow-up: Return to clinic in 1 week for re-evaluation. Wound cultures were reviewed and showed rare bacteria, no indication for any changes in therapy at this time return sooner or report to the emergency room should symptoms worsen, or new symptoms arise. This note was generated with [employer] dictation software. It may contain incorrect words, spelling, and punctuation that were not noted in checking the note before signing. I have spent 55 minutes today reviewing labs, records, and history. Time includes coordinating care, interpretation of tests, and counseling the patient/family. This also includes time I spent with the patient for exam, treatment plan, and education as well as documenting clinical information in the electronic health record.
[2021-02-24 15:13] VITALS: BP 157/80; PULSE 89; RESP 17; TEMP 36.5
--- NOTE | 2021-02-24 23:35 | PCM.WC.PN ---
History of Present Illness Date of Service: 02/24/21 Chief Complaint: Nonhealing venous leg ulcers right lower extremity and left foot History of Wound: This is an 80-year-old male who presents to the wound healing center today with complaint of nonhealing bilateral lower extremity ulcers. He does have a past medical history significant for CAD, hyperlipidemia, hypertension, PVD,and hypothyroidism. He states that his wounds to his bilateral lower extremities have been present since August 2020 after he was on a blood thinner for recurrent DVT and fell. He states that he was taken off the blood thinner and is now on aspirin 325 mg daily and has had issues with his ulcers to his lower extremities not healing. He also brings up worsening lower extremity edema that now goes up into his thighs. He states that he is more short of breath with exertion and he notes orthopnea as well. He denies any history of CHF but does state that he has followed up with cardiology in the past for a prior NV. He states he is consistent with his Lasix therapy. He denies any other acute concerns. For wound care he has been utilizing covering the site with Neosporin, gauze, and Umesh wraps. He notes a large amount of clear drainage. Past medical, family, and social history reviewed and not pertinent to the current visit and all other systems reviewed and negative with exception of those listed above. Progress of Wound: Stable?no new concerns, patient did follow-up with his primary care who placed him on Aldactone. He does note that his lower extremity swelling and drainage has improved somewhat, wounds are stable with slight improvement, wound cultures were reviewed and just showed rare bacteria. The patient has been doing standard wound care now since August 2020 as directed by his primary care and also multiple weeks at the wound center without marked improvement, therefore an advanced skin substitute Apligraf #1 will be applied today to the Right VLU. Objective Data Objective Data Vital Signs: Vital Signs Temp Pulse Resp BP 97.7 F L 89 17 157/80 H 02/24/21 15:13 02/24/21 15:13 02/24/21 15:13 02/24/21 15:13 Oxygen Delivery Method Room Air Lab / Micro Data Micro: Microbiology 02/03/21 11:10 Wound - Leg, Right Gram Stain - Final 02/03/21 11:10 Wound - Leg, Right Wound Culture - Final Enterobacter cloacae complex Staphylococcus epidermidis Corynebacterium striatum 02/03/21 11:10 Wound - Leg, Right Anaerobic Culture - Final No anaerobic bacteria isolated. Charges/Coding Procedures Integumentary 111xxx-113xx: 39140 Marnie subq tissue 20 sq cm/< 150xxx-152xx: [id number] Skin sub graft trnk/arm/leg Physical Exam Const alert, oriented x3, no apparent distress, healthy appearing and well nourished General Appearance: cooperative Exam Limitations: no limitations HEENT normocephalic Head and Scalp: normal to inspection Mouth: oral and palatal mucosa normal Eyes General Eye: normal appearance of both eyes Resp normal air movement Effort and Inspection: able to speak in complete sentences Auscultation: crackles bilateral Cardio regular rate, regular rhythm, S1 normal heart sound, S2 normal heart sound, no murmurs and peripheral pulses 2+ throughout Palpation: normal PMI Rate: regular rate Heart Sounds: S1 normal and S2 normal GI normal to inspection, nondistended, normoactive bowel sounds, soft to palpation, non-tender and non-distended Palpation: soft Extremity normal to inspection and full ROM General Extremity: normal exam except as noted Skin Skin Narrative: 2+ pitting edema to the bilateral lower extremities which extends below the knees, wounds present to the right lower extremity and left dorsal foot with large amount of adherent slough and there is undermining present as well, no surrounding erythema but there is large amounts of serous drainage. Chronic venous changes present to bilateral lower extremities as well. Dorsal pedis pulses present 2+ Neuro oriented x3 and moves all extremities Sensorium / Orientation: awake, alert, oriented to person, oriented to place and oriented to time Psych mental status grossly normal, thought process normal and denies hallucinations Appearance: grossly normal Attitude: calm Activity / Motor Behavior: appropriate eye contact Speech: normal speech Thought Process: normal thought process Thought Content: normal thought content Attention / Concentration: attention grossly intact Insight: insight good Judgement: judgement good Debridement Note Debridement Note Post-Debridement Measurements and Additional Note: Post-Debridement Measurements/Treatment CEDRIC - Nurse 1 - General Ulcer Assessment Start: 02/03/21 10:41 Freq: Status: Active Protocol: CEDRIC.NAYE Activity Type Activity Date Activity User E-Sign Co-Sign Detail Recorded Client Recorded Date Recorded By Document 02/03/21 10:43 MT [id number] 02/03/21 10:52 MT Document 02/10/21 13:25 ML [id number] 02/10/21 13:46 ML Document 02/17/21 15:08 DL [id number] 02/17/21 15:23 DL Document 02/24/21 15:13 ML [id number] 02/24/21 15:16 ML 02/03/21 02/10/21 02/17/21 10:43 13:25 15:08 WC - Today's Visit Information Type of service Initial Visit Follow-up Visit Follow-up Visit (Physician/MOBILE EQUIPMENT OPERATOR (Physician/MOBILE EQUIPMENT OPERATOR ) ) Arrival Mode Walker Walker, Ambulatory, Wheelchair Walker Transfer Assistance None None Accompanied by self Patient Identification Verified (Name & Yes Yes Yes ) Patient Requires Transmission-Based No No Precautions Safety Precautions Fall Prevention NA Vital Signs Temperature (97.8 F-99.1 F) 97.0 F L 98.0 F 98.7 F Temperature Source Temporal Temporal Temporal Pulse Rate (60-100) 79 89 81 Pulse Location Monitor Monitor Monitor Respiratory Rate (12-18) 18 19 H 20 H Respiratory rate source Observation Observation Observation Oxygen Delivery Method Room Air Blood Pressure (90/60-120/80) 174/93 H 174/85 H 161/93 H Blood Pressure Mean (mm Hg) 120 114 115 Source Monitor Monitor Monitor Position Sitting Sitting Blood Pressure Location Left Arm Right Arm Have you changed medications since your Yes No last visit? Any new allergies or adverse reactions No No Had a fall/change in ADL's that may No No increase risk of falls Signs or symptoms of abuse and/or No No neglect since last visit Have you been in the hospital since your No No last visit? Has dressing in place as prescribed Yes Yes Has compression in place as prescribed Yes Yes Has offloadiing in place as prescribed N/A N/A Experienced any changes in pain level or No No management History Since Last Visit- (Skip if this is Patient's initial visit) Left Footwear Slipper Slipper Right Footwear Slipper Slipper Pain Scale: 0-10 Numeric Is Patient Pain Free? Yes Yes 02/24/21 15:13 WC - Today's Visit Information Type of service Follow-up Visit (Physician/MOBILE EQUIPMENT OPERATOR ) Arrival Mode Walker Transfer Assistance None Accompanied by Patient Identification Verified (Name & Yes ) Patient Requires Transmission-Based No Precautions Safety Precautions NA Vital Signs Temperature (97.8 F-99.1 F) 97.7 F L Temperature Source Temporal Pulse Rate (60-100) 89 Pulse Location Monitor Respiratory Rate (12-18) 17 Respiratory rate source Observation Oxygen Delivery Method Blood Pressure (90/60-120/80) 157/80 H Blood Pressure Mean (mm Hg) 105 Source Monitor Position Sitting Blood Pressure Location Left Arm Have you changed medications since your No last visit? Any new allergies or adverse reactions No Had a fall/change in ADL's that may No increase risk of falls Signs or symptoms of abuse and/or No neglect since last visit Have you been in the hospital since your No last visit? Has dressing in place as prescribed Yes Has compression in place as prescribed Yes Has offloadiing in place as prescribed N/A Experienced any changes in pain level or No management History Since Last Visit- (Skip if this is Patient's initial visit) Left Footwear Slipper Right Footwear Slipper Pain Scale: 0-10 Numeric Is Patient Pain Free? Yes WC - Nurse 1 - General Ulcer Measurement Start: 02/03/21 10:41 Freq: Status: Active Protocol: Activity Type Activity Date Activity User E-Sign Co-Sign Detail Recorded Client Recorded Date Recorded By Document 02/03/21 10:43 MT [id number] 02/03/21 10:52 MT Document 02/10/21 13:25 ML [id number] 02/10/21 13:46 ML Document 02/17/21 15:08 DL [id number] 02/17/21 15:23 DL Document 02/24/21 15:13 ML [id number] 02/24/21 15:16 ML 02/03/21 02/10/21 02/17/21 10:43 13:25 15:08 Wound Center Nurse 1 #2 Left dorsal foot -Current Size (cm) - Length 2 2.5 1.2 -Current Size (cm) - Width 2.6 2.8 1 -Current Size (cm) - Depth 0.1 0.3 0.1 -Total Square Cm 5.2 7.00 1.2 -Date of Last Picture (Recall this 02/03/21 field) -Photo Taken Yes No -Epithelialization None Present -Tunneling No -Exudate Amt Medium Medium Small -Exudate Type Serosanguineous Serosanguineous Serosanguineous -Wound Margin Flat & Intact Distinct, Distinct, Outline Outline Attached Attached -Granulation Amt Large (67-100%) Medium (34-66%) Large (67-100%) -Granulation Quality Pale,[place] -Slough/Fibrin Yes -Necrosis Amt Small (1-33%) Medium (34-66%) Medium (34-66%) -Necrotic Tissue Type Adherent Slough Adherent Slough Adherent Slough -Structure Exposed N/A -Texture (Nicolasa-wound Skin Appearance) Assessed, Assessed Scarring Localized Edema -Moisture (Nicolasa-wound Skin Appearance) Assessed, Assessed Dry/Scaly Maceration -Color (Nicolasa-wound Skin Appearance) Assessed Assessed Hemosiderin Staining -Temperature (Nicolasa-wound Skin No Abnormality No Abnormality No Abnormality Appearance) (Pt Warm) (Pt Warm) (Pt Warm) -Tenderness on Palpation (Nicolasa-wound No No Skin Appearance) -Ulcer Cleansing Wound Cleanser Wound Cleanser Wound Cleanser -Foul Odor after Cleansing No No -Anesthetic Used 4% Lidocaine 4% Lidocaine 4% Lidocaine Solution Solution Solution #1 Right Knee -Current Size (cm) - Length 3.5 2.3 3.2 -Current Size (cm) - Width 3.5 2.5 2.5 -Current Size (cm) - Depth 0.1 0.2 0.6 -Total Square Cm 12.25 5.75 8.00 -Date of Last Picture (Recall this 02/03/21 field) -Photo Taken Yes No -Tunneling Position (O'clock) 10 -Tunneling Distance (cm) 1.3 -Tunneling Position #2 (O'clock) 2 -Tunneling Distance #2 (cm) 0.5 -Exudate Amt Medium Medium Medium -Exudate Type Serosanguineous Serosanguineous Serosanguineous -Wound Margin Flat & Intact Distinct, Distinct, Outline Outline Attached Attached -Granulation Amt Large (67-100%) Medium (34-66%) Medium (34-66%) -Granulation Quality Pale,[place] Red -Slough/Fibrin Yes -Necrosis Amt Small (1-33%) Medium (34-66%) Medium (34-66%) -Necrotic Tissue Type Adherent Slough Adherent Slough Eschar -Structure Exposed None/Limited to Skin Breakdown -Texture (Nicolasa-wound Skin Appearance) Assessed, Not Assessed Scarring Localized Edema -Moisture (Nicolasa-wound Skin Appearance) Assessed Assessed Dry/Scaly -Color (Nicolasa-wound Skin Appearance) Assessed Hemosiderin Staining -Temperature (Nicolasa-wound Skin No Abnormality No Abnormality Appearance) (Pt Warm) (Pt Warm) -Tenderness on Palpation (Nicolasa-wound No No Skin Appearance) -Ulcer Cleansing Wound Cleanser Rinsed/ Irrigated with Saline -Foul Odor after Cleansing No No -Anesthetic Used 4% Lidocaine 4% Lidocaine Solution Solution Lower Limb Edema Present Yes Right Calf (cm) 53.5 47 40 Right Ankle (cm) 30 31 27.2 Left Calf (cm) 50.5 36.5 38.6 Left Ankle (cm) 30 32 27.2 02/24/21 15:13 Wound Center Nurse 1 #2 Left dorsal foot -Current Size (cm) - Length 1 -Current Size (cm) - Width 8 -Current Size (cm) - Depth 0.1 -Total Square Cm 8 -Date of Last Picture (Recall this field) -Photo Taken -Epithelialization -Tunneling -Exudate Amt Medium -Exudate Type Serosanguineous -Wound Margin Distinct, Outline Attached -Granulation Amt Medium (34-66%) -Granulation Quality -Slough/Fibrin Yes -Necrosis Amt Medium (34-66%) -Necrotic Tissue Type Adherent Slough -Structure Exposed -Texture (Nicolasa-wound Skin Appearance) Assessed -Moisture (Nicolasa-wound Skin Appearance) Assessed -Color (Nicolasa-wound Skin Appearance) Assessed -Temperature (Nicolasa-wound Skin No Abnormality Appearance) (Pt Warm) -Tenderness on Palpation (Nicolasa-wound Yes Skin Appearance) -Ulcer Cleansing Wound Cleanser -Foul Odor after Cleansing No -Anesthetic Used 4% Lidocaine Solution #1 Right Knee -Current Size (cm) - Length 2.8 -Current Size (cm) - Width 2 -Current Size (cm) - Depth 0.3 -Total Square Cm 5.6 -Date of Last Picture (Recall this field) -Photo Taken -Tunneling Position (O'clock) -Tunneling Distance (cm) -Tunneling Position #2 (O'clock) -Tunneling Distance #2 (cm) -Exudate Amt Medium -Exudate Type Serosanguineous -Wound Margin Distinct, Outline Attached -Granulation Amt Medium (34-66%) -Granulation Quality -Slough/Fibrin Yes -Necrosis Amt Medium (34-66%) -Necrotic Tissue Type Adherent Slough -Structure Exposed -Texture (Nicolasa-wound Skin Appearance) Assessed -Moisture (Nicolasa-wound Skin Appearance) Assessed -Color (Nicolasa-wound Skin Appearance) Assessed -Temperature (Nicolasa-wound Skin No Abnormality Appearance) (Pt Warm) -Tenderness on Palpation (Nicolasa-wound No Skin Appearance) -Ulcer Cleansing Wound Cleanser -Foul Odor after Cleansing No -Anesthetic Used 4% Lidocaine Solution Lower Limb Edema Present Right Calf (cm) Right Ankle (cm) Left Calf (cm) Left Ankle (cm) WC - Nurse 2 - General Ulcer CM Notes Start: 02/03/21 10:41 Freq: Status: Active Protocol: Activity Type Activity Date Activity User E-Sign Co-Sign Detail Recorded Client Recorded Date Recorded By Document 02/03/21 12:38 PL [id number] 02/03/21 12:40 PL Document 02/10/21 15:24 PL [id number] 02/10/21 15:28 PL Document 02/17/21 15:41 DL [id number] 02/17/21 15:45 DL Edit Result 02/17/21 15:41 DL (1) [id number] 02/20/21 09:56 PL Document 02/24/21 15:26 MW [id number] 02/24/21 15:39 MW Edit Result 02/24/21 15:26 MW (2) [id number] 02/24/21 18:04 PL (1) #1 Right Knee - Debridement - Subq, 1st 20sq cm Yes => No (2) #1 Right Knee - Apligraf (per sq cm) 44 => 10 02/03/21 02/10/21 02/17/21 12:38 15:24 15:41 Wound Center Nurse 2 #2 Left dorsal foot -Time 11:03 13:55 15:42 -Correct Patient Yes Yes Yes -Correct Side, Site, Position Yes Yes Yes -Correct Procedure Yes Yes Yes -Procedure Performed Yes Yes Yes -Type of Procedure Debridement Debridement Debridement -Clinical Debridement Subcutaneous Subcutaneous Subcutaneous -Tissue Removed Subcutaneous Subcutaneous Subcutaneous -Post Debridement (cm) - Length 2.3 2.0 2.0 -Post Debridement (cm) - Width 2.7 2.5 1.0 -Post Debridement (cm) - Depth 0.6 0.5 0.2 -Total Square (Post) (cm) 6.21 5.00 2.00 -Area of Debridement (cm) - Length 2.3 2.0 2.0 -Area of Debridement (cm) - Width 2.7 0.5 1.0 -Total Square (Area) (cm) 6.21 1.00 2.00 -Tunneling No No -Undermining/Tunneling No No No -Undermining/Tunneling Starts (O'clock 1 ) -Undermining/Tunneling Ends (O'clock) 1 -Maximum Distance (cm) 1.0 -Circular Undermining No No No -Wound/Ulcer Outcome Not Healed Not Healed Not Healed -Ulcer Cleansing Rinsed/ Rinsed/ Rinsed/ Irrigated with Irrigated with Irrigated with Saline Saline Saline -Foul Odor after Cleansing No No No -Bioengineered Tissue No No No -Bleeding Controlled with Pressure Pressure -Offloading No -Treatment Response Procedure Procedure Tolerated Well Tolerated Well -Debridement - Subq, 1st 20sq cm Yes Yes Yes #1 Right Knee -Time 11:03 13:55 15:42 -Correct Patient Yes Yes Yes -Correct Side, Site, Position Yes Yes Yes -Correct Procedure Yes Yes Yes -Procedure Performed Yes Yes Yes -Type of Procedure Debridement Debridement Debridement -Clinical Debridement Subcutaneous Subcutaneous Subcutaneous -Tissue Removed Subcutaneous Subcutaneous Subcutaneous -Post Debridement (cm) - Length 3.7 3.7 3.2 -Post Debridement (cm) - Width 3.5 3.7 2.5 -Post Debridement (cm) - Depth 0.9 0.5 0.5 -Total Square (Post) (cm) 12.95 13.69 8.00 -Area of Debridement (cm) - Length 3.7 3.7 3.2 -Area of Debridement (cm) - Width 3.5 3.7 2.5 -Total Square (Area) (cm) 12.95 13.69 8.00 -Tunneling No Yes Yes -Tunneling Position (O'clock) 11 11 -Tunneling Distance (cm) 2.0 2.0 -Tunneling Position #2 (O'clock) 5 -Tunneling Distance #2 (cm) 0.5 -Undermining/Tunneling No No No -Circular Undermining No No No -Wound/Ulcer Outcome Not Healed Not Healed Not Healed -Ulcer Cleansing Rinsed/ Rinsed/ Rinsed/ Irrigated with Irrigated with Irrigated with Saline Saline Saline -Foul Odor after Cleansing No No No -Bioengineered Tissue No No No -Type of Bioengineered Tissue -Expiration Date -Product Lot Number -Percent Used -Lot number of Saline Used -Bleeding Controlled with Pressure Pressure -Other -Offloading No -Treatment Response Procedure Procedure Tolerated Well Tolerated Well -Debridement - Subq, 1st 20sq cm No No No -Apply Skin Sub - 1st 25 sq cm - Legs -Apligraf (per sq cm) Pain Scale: 0-10 Numeric Is Patient Pain Free? Yes Yes Yes 02/24/21 15:26 Wound Center Nurse 2 #2 Left dorsal foot -Time 15:29 -Correct Patient Yes -Correct Side, Site, Position Yes -Correct Procedure Yes -Procedure Performed Yes -Type of Procedure Debridement -Clinical Debridement Subcutaneous -Tissue Removed Subcutaneous -Post Debridement (cm) - Length 1.0 -Post Debridement (cm) - Width 1.5 -Post Debridement (cm) - Depth 0.1 -Total Square (Post) (cm) 1.50 -Area of Debridement (cm) - Length 1.0 -Area of Debridement (cm) - Width 1.5 -Total Square (Area) (cm) 1.50 -Tunneling No -Undermining/Tunneling No -Undermining/Tunneling Starts (O'clock ) -Undermining/Tunneling Ends (O'clock) -Maximum Distance (cm) -Circular Undermining No -Wound/Ulcer Outcome Not Healed -Ulcer Cleansing Rinsed/ Irrigated with Saline -Foul Odor after Cleansing No -Bioengineered Tissue No -Bleeding Controlled with Pressure -Offloading No -Treatment Response Procedure Tolerated Well -Debridement - Subq, 1st 20sq cm Yes #1 Right Knee -Time 15:28 -Correct Patient Yes -Correct Side, Site, Position Yes -Correct Procedure Yes -Procedure Performed Yes -Type of Procedure Debridement -Clinical Debridement Subcutaneous -Tissue Removed Subcutaneous -Post Debridement (cm) - Length 3.5 -Post Debridement (cm) - Width 3.0 -Post Debridement (cm) - Depth 1.0 -Total Square (Post) (cm) 10.50 -Area of Debridement (cm) - Length 3.5 -Area of Debridement (cm) - Width 3.0 -Total Square (Area) (cm) 10.50 -Tunneling No -Tunneling Position (O'clock) -Tunneling Distance (cm) -Tunneling Position #2 (O'clock) -Tunneling Distance #2 (cm) -Undermining/Tunneling No -Circular Undermining No -Wound/Ulcer Outcome Not Healed -Ulcer Cleansing Rinsed/ Irrigated with Saline -Foul Odor after Cleansing No -Bioengineered Tissue Yes -Type of Bioengineered Tissue Apligraf -Expiration Date 03/04/21 -Product Lot Number [id number] -Percent Used 100 -Lot number of Saline Used [id number] -Bleeding Controlled with Pressure -Other apligraf waste 33.5 sq cm -Offloading No -Treatment Response Procedure Tolerated Well -Debridement - Subq, 1st 20sq cm No -Apply Skin Sub - 1st 25 sq cm - Legs 1 -Apligraf (per sq cm) 10 Pain Scale: 0-10 Numeric Is Patient Pain Free? Yes WC - Nurse 3 - General Ulcer D/C NN Start: 02/03/21 10:41 Freq: Status: Active Protocol: Activity Type Activity Date Activity User E-Sign Co-Sign Detail Recorded Client Recorded Date Recorded By Document 02/03/21 11:24 ML [id number] 02/03/21 11:38 ML Document 02/10/21 14:09 ML [id number] 02/10/21 14:11 ML Document 02/17/21 16:33 DL [id number] 02/17/21 16:34 DL Document 02/24/21 15:53 AK [id number] 02/24/21 15:55 AK 02/03/21 02/10/21 02/17/21 11:24 14:09 16:33 Wound Care Nurse 3 #2 Left dorsal foot -Ulcer Cleansing Rinsed/ Rinsed/ Irrigated with Irrigated with Saline Saline -Foul Odor after Cleansing No No -Primary Dressing Applied Silvercel Silvercel Silvercel -Primary Dressing Covered/Secured with Dry Gauze, Dry Gauze, Dry Gauze Secured with Secured with Tape Tape -Silvercel 1 1 1 #1 Right Knee -Ulcer Cleansing Rinsed/ Rinsed/ Wound Cleanser Irrigated with Irrigated with Saline Saline -Foul Odor after Cleansing No No No -Primary Dressing Applied Silvercel Silvercel -Other Dressing silvercell -Primary Dressing Covered/Secured with Dry Gauze & Dry Gauze & Dry Gauze Roll Gauze, Roll Gauze, Secured with Secured with Tape Tape -Silvercel 0 0 Right -Lotion applied to leg before compression wrap -Multi-Layered Wrap Application Unna Boot - Bilateral ($) -Unna Boots (Bilat) ($) 2 -Size of Tubigrip Used Size F Size E -Size F ($) 2 Left -Tubular Bandage Double Layer Double Layer -Size of Tubigrip Used Size F Size E -Size E ($) 2 -Size F ($) 2 Pain Scale: 0-10 Numeric Is Patient Pain Free? Yes WC - Visit Discharge Discharge Condition Stable Stable Stable Ambulatory Status Ambulatory Walker, Ambulatory Wheelchair Transportation Private Auto Medication Reconcilliation completed & No No provided to patient/care provider Clinical Summary of Care Provided Yes Yes 02/24/21 15:53 Wound Care Nurse 3 #2 Left dorsal foot -Ulcer Cleansing Rinsed/ Irrigated with Saline -Foul Odor after Cleansing No -Primary Dressing Applied Silvercel -Primary Dressing Covered/Secured with Dry Gauze & Roll Gauze, Secured with Tape -Silvercel 1 #1 Right Knee -Ulcer Cleansing -Foul Odor after Cleansing -Primary Dressing Applied -Other Dressing -Primary Dressing Covered/Secured with -Silvercel Right -Lotion applied to leg before Yes compression wrap -Multi-Layered Wrap Application Multi-Layer Comp - Bilat ($ ) -Unna Boots (Bilat) ($) -Size of Tubigrip Used -Size F ($) Left -Tubular Bandage -Size of Tubigrip Used -Size E ($) -Size F ($) Pain Scale: 0-10 Numeric Is Patient Pain Free? WC - Visit Discharge Discharge Condition Stable Ambulatory Status Ambulatory Transportation Private Auto Medication Reconcilliation completed & provided to patient/care provider Clinical Summary of Care Provided Additional Wound Wound debrided: Right VLU and left foot ulcer Type of Debridement: Excisional debridement Anesthesia Used: 5% Lidocaine Gel Depth: Down to and including healthy tissue and in the subcutaneous layer Percentage of wound debrided: 100 Instrument Used: 5mm curette Tissue Removed: slough and devitalized tissue Severity: Fat Layer Exposed Amount of bleeding with debridement: Mild Bleeding Controlled with: Pressure and Compression and gauze Patient tolerated procedure: Patient tolerated procedure well Assessment/Plan Assessment/Plan (1) Venous stasis ulcer of right lower leg with edema of right lower leg: CODE(S): I83.019 - Varicose veins of right lower extremity with ulcer of unspecified site; I83.891 - Varicose veins of right lower extremity with other complications; L97.919 - Non-pressure chronic ulcer of unspecified part of right lower leg with unspecified severity; R60.9 - Edema, unspecified (2) Venous ulcer of right leg: CODE(S): I83.019 - Varicose veins of right lower extremity with ulcer of unspecified site; L97.919 - Non-pressure chronic ulcer of unspecified part of right lower leg with unspecified severity (3) Non-healing ulcer of left foot: CODE(S): L97.529 - Non-pressure chronic ulcer of other part of left foot with unspecified severity QUALIFIERS: Non-pressure ulcer stage: with fat layer exposed Qualified Code(s): L97.522 - Non-pressure chronic ulcer of other part of left foot with fat layer exposed (4) Bilateral lower extremity edema: CODE(S): R60.0 - Localized edema (5) CAD (coronary artery disease): CODE(S): I25.10 - Atherosclerotic heart disease of [place] coronary artery without angina pectoris (6) Hyperlipidemia: CODE(S): E78.5 - Hyperlipidemia, unspecified (7) Benign essential hypertension: CODE(S): I10 - Essential (primary) hypertension PLAN: Debridement performed today in clinic as annotated above. Silver cell applied. At home wound-care instructions: Silver cell moistened cover with gauze to left foot ulcer and apligraf was applied to right VLU and covered with adaptic and steris, 33.5 units were wasted due to wound size and wound center policy, 3m wraps over top to be changed in 4 days. Compression: 3m wraps for compression, patient states that he had vascular studies done at , will request. Off-loading: The patient was instructed to avoid pressure and friction on the affected areas. Reposition every 2 hours at minimum. Avoid prolonged standing and/or dangling of legs. When seated, feet should be elevated at chest level. Frequent ambulation is encouraged. Diet: Patient encouraged to increase protein intake while taking caution to avoid high carbohydrate and/or sugar intake. Patient is a non-smoker Labs/cultures/imaging:. Routine baseline lab work ordered, BNP ordered, both blood work is still pending at this time. Vascular studies ordered. Given the delayed wound healing and fact that this is a venous leg ulcer of the right lower extremity with a known history of PVD, an advanced skin substitute will be ordered. Follow-up: Return to clinic in 1 week for re-evaluation. Wound cultures were reviewed and showed rare bacteria, no indication for any changes in therapy at this time return sooner or report to the emergency room should symptoms worsen, or new symptoms arise. This note was generated with [employer] dictation software. It may contain incorrect words, spelling, and punctuation that were not noted in checking the note before signing. I have spent 35 minutes today reviewing labs, records, and history. Time includes coordinating care, interpretation of tests, and counseling the patient/family. This also includes time I spent with the patient for exam, treatment plan, and education as well as documenting clinical information in the electronic health record.
== END 2021-02-26 23:59 ==
LOC: WC 15:00
PROVIDERS: PCP Family Medicine; Visit Provider Nurse Practitioner Family
DX: I83.019 Varicose veins of right lower extremity with ulcer of unspecified site (principal); L97.912 Non-pressure chronic ulcer of unspecified part of right lower leg with fat layer exposed; L97.522 Non-pressure chronic ulcer of other part of left foot with fat layer exposed; M79.89 Other specified soft tissue disorders; R60.0 Localized edema; R06.01 Orthopnea; I25.10 Atherosclerotic heart disease of native coronary artery without angina pectoris; I10 Essential (primary) hypertension; E78.5 Hyperlipidemia, unspecified; E03.9 Hypothyroidism, unspecified; Z79.82 Long term (current) use of aspirin; I25.2 Old myocardial infarction; Z86.718 Personal history of other venous thrombosis and embolism
CPT/HCPCS: 11042; 15271; 29580; 29581; 87070; 87075; 87077; 87186; 87205; 99213; Q4101; G0463

== ENCOUNTER 2021-03-24 14:15 | Outpatient (RCR) | payer MEDICARE, SELFPAY ==
[2021-02-27 00:36] VITALS: BP 157/80; PULSE 89; RESP 17; TEMP 36.5
[2021-03-03 13:02] VITALS: BP 173/83; PULSE 87; RESP 18; TEMP 36.6
--- NOTE | 2021-03-03 23:32 | PCM.WC.PN ---
History of Present Illness Date of Service: 03/03/21 Chief Complaint: Nonhealing venous leg ulcers right lower extremity and left foot History of Wound: This is an 80-year-old male who presents to the wound healing center today with complaint of nonhealing bilateral lower extremity ulcers. He does have a past medical history significant for CAD, hyperlipidemia, hypertension, PVD,and hypothyroidism. He states that his wounds to his bilateral lower extremities have been present since August 2020 after he was on a blood thinner for recurrent DVT and fell. He states that he was taken off the blood thinner and is now on aspirin 325 mg daily and has had issues with his ulcers to his lower extremities not healing. He also brings up worsening lower extremity edema that now goes up into his thighs. He states that he is more short of breath with exertion and he notes orthopnea as well. He denies any history of CHF but does state that he has followed up with cardiology in the past for a prior ME. He states he is consistent with his Lasix therapy. He denies any other acute concerns. For wound care he has been utilizing covering the site with Neosporin, gauze, and Umesh wraps. He notes a large amount of clear drainage. Past medical, family, and social history reviewed and not pertinent to the current visit and all other systems reviewed and negative with exception of those listed above. 03/03/2021?patient reports a mechanical fall where he tripped over a rug in his kitchen and bumped his bilateral arms and developed skin tears. He reports that this is his second mechanical fall over the past year. He states that he feels safe at home and does not have any issues caring for himself and does not feel it necessary that he go to an assisted living or halfway facility. Progress of Wound: Patient's lower extremity ulcers are improving, the right lower extremity ulcer has done very well with Apligraf, he did develop new skin tears to his bilateral arms after a recent fall Objective Data Objective Data Vital Signs: Vital Signs Temp Pulse Resp BP 97.9 F 87 18 173/83 H 03/03/21 13:02 03/03/21 13:02 03/03/21 13:02 03/03/21 13:02 Charges/Coding Visit Charges Office Visits / Consults: 19915 OV L3 Est Procedures Integumentary 111xxx-113xx: 49586 Marnie subq tissue 20 sq cm/< 150xxx-152xx: 00578 Skin sub graft trnk/arm/leg Add On Codes: 56328 Marnie subq tissue add-on (x 6) Physical Exam Const alert, oriented x3, no apparent distress, healthy appearing and well nourished General Appearance: cooperative Exam Limitations: no limitations HEENT normocephalic Head and Scalp: normal to inspection Mouth: oral and palatal mucosa normal Eyes General Eye: normal appearance of both eyes Resp normal air movement Effort and Inspection: able to speak in complete sentences Auscultation: crackles bilateral Cardio regular rate, regular rhythm, S1 normal heart sound, S2 normal heart sound, no murmurs and peripheral pulses 2+ throughout Palpation: normal PMI Rate: regular rate Heart Sounds: S1 normal and S2 normal GI normal to inspection, nondistended, normoactive bowel sounds, soft to palpation, non-tender and non-distended Palpation: soft Extremity normal to inspection and full ROM General Extremity: normal exam except as noted Skin Skin Narrative: 2+ pitting edema to the bilateral lower extremities which extends below the knees, wounds present to the right lower extremity and left dorsal foot with large amount of adherent slough and there is no undermining present at this time, no surrounding erythema small amount of drainage. Patient does have multiple skin tears present on his left arm, right elbow, and right upper posterior arm, slough present but no signs of obvious infection. Chronic venous changes present to bilateral lower extremities as well. Dorsal pedis pulses present 2+ Neuro oriented x3 and moves all extremities Sensorium / Orientation: awake, alert, oriented to person, oriented to place and oriented to time Psych mental status grossly normal, thought process normal and denies hallucinations Appearance: grossly normal Attitude: calm Activity / Motor Behavior: appropriate eye contact Speech: normal speech Thought Process: normal thought process Thought Content: normal thought content Attention / Concentration: attention grossly intact Insight: insight good Judgement: judgement good Debridement Note Debridement Note Post-Debridement Measurements and Additional Note: Post-Debridement Measurements/Treatment CEDRIC - Nurse 1 - General Ulcer Assessment Start: 03/03/21 13:02 Freq: Status: Active Protocol: CEDRIC.NAYE Activity Type Activity Date Activity User E-Sign Co-Sign Detail Recorded Client Recorded Date Recorded By Document 03/03/21 13:02 LEYDI [id number] 03/03/21 13:26 DL 03/03/21 13:02 - Today's Visit Information Type of service Follow-up Visit (Physician/LEAK DETECTION ENGINEER ) Arrival Mode Ambulatory, Walker Transfer Assistance Stretcher Patient Identification Verified (Name & Yes ) Patient Requires Transmission-Based No Precautions Vital Signs Temperature (97.8 F-99.1 F) 97.9 F Temperature Source Temporal Pulse Rate (60-100) 87 Pulse Location Monitor Respiratory Rate (12-18) 18 Respiratory rate source Observation Blood Pressure (90/60-120/80) 173/83 H Blood Pressure Mean (mm Hg) 113 Source Monitor History Since Last Visit- (Skip if this is Patient's initial visit) Have you changed medications since your No last visit? Any new allergies or adverse reactions No Had a fall/change in ADL's that may No increase risk of falls Signs or symptoms of abuse and/or No neglect since last visit Have you been in the hospital since your No last visit? Has dressing in place as prescribed Yes Has compression in place as prescribed Yes Has offloadiing in place as prescribed No Experienced any changes in pain level or Yes management Pain Scale: 0-10 Numeric Is Patient Pain Free? Yes - Nurse 1 - General Ulcer Measurement Start: 03/03/21 13:02 Freq: Status: Active Protocol: Activity Type Activity Date Activity User E-Sign Co-Sign Detail Recorded Client Recorded Date Recorded By Document 03/03/21 13:02 [id number] 03/03/21 13:26 DL 03/03/21 13:02 Wound Center Nurse 1 #5 R Upper Post arm -Current Size (cm) - Length 5 -Current Size (cm) - Width 4.1 -Current Size (cm) - Depth 0.1 -Total Square Cm 20.5 -Photo Taken Yes -Classification - Thickness Full Thickness without Exposed Support Structure -Exudate Amt Small -Exudate Type Serosanguineous -Wound Margin Indistinct, Non -Visible -Granulation Amt Large (67-100%) -Granulation Quality Red -Necrosis Amt Small (1-33%) -Necrotic Tissue Type Adherent Slough -Structure Exposed N/A -Texture (Nicolasa-wound Skin Appearance) Friable, Localized Edema ,Scarring -Moisture (Nicolasa-wound Skin Appearance) No Abnormality -Color (Nicolasa-wound Skin Appearance) Ecchymosis, Erythema #4 R Elbow -Current Size (cm) - Length 3.6 -Current Size (cm) - Width 1 -Current Size (cm) - Depth 0.1 -Total Square Cm 3.6 -Photo Taken Yes -Classification - Thickness Full Thickness without Exposed Support Structure -Exudate Amt Small -Exudate Type Serosanguineous -Wound Margin Distinct, Outline Attached -Granulation Amt Medium (34-66%) -Granulation Quality Pale,[place] -Necrosis Amt Medium (34-66%) -Necrotic Tissue Type Adherent Slough -Structure Exposed N/A -Texture (Nicolasa-wound Skin Appearance) Friable, Localized Edema ,Scarring -Moisture (Nicolasa-wound Skin Appearance) Dry/Scaly -Color (Nicolasa-wound Skin Appearance) Ecchymosis, Erythema -Temperature (Nicolasa-wound Skin No Abnormality Appearance) (Pt Warm) -Tenderness on Palpation (Nicolasa-wound No Skin Appearance) -Foul Odor after Cleansing No -Anesthetic Used 4% Lidocaine Solution #3 L Arm -Current Size (cm) - Length 21 -Current Size (cm) - Width 8 -Current Size (cm) - Depth 0.1 -Total Square Cm 168 -Photo Taken Yes -Exudate Amt Medium -Exudate Type Serosanguineous -Wound Margin Indistinct, Non -Visible -Granulation Amt Large (67-100%) -Granulation Quality Red -Necrosis Amt Small (1-33%) -Necrotic Tissue Type Adherent Slough -Structure Exposed N/A -Texture (Nicolasa-wound Skin Appearance) Friable, Localized Edema -Moisture (Nicolasa-wound Skin Appearance) No Abnormality -Color (Nicolasa-wound Skin Appearance) Ecchymosis, Erythema -Temperature (Nicolasa-wound Skin No Abnormality Appearance) (Pt Warm) -Tenderness on Palpation (Nicolasa-wound No Skin Appearance) -Ulcer Cleansing Wound Cleanser -Foul Odor after Cleansing No -Anesthetic Used 4% Lidocaine Solution #2 Left dorsal foot -Current Size (cm) - Length 0.7 -Current Size (cm) - Width 0.6 -Current Size (cm) - Depth 0.1 -Total Square Cm 0.42 -Photo Taken No -Tunneling No -Undermining/Tunneling No -Circular Undermining No -Exudate Amt Medium -Exudate Type Serosanguineous -Wound Margin Distinct, Outline Attached -Granulation Amt Medium (34-66%) -Granulation Quality [place] -Slough/Fibrin Yes -Necrosis Amt Small (1-33%) -Necrotic Tissue Type Adherent Slough -Texture (Nicolasa-wound Skin Appearance) No Abnormality, Assessed -Moisture (Nicolasa-wound Skin Appearance) No Abnormality, Assessed -Color (Nicolasa-wound Skin Appearance) No Abnormality, Assessed -Temperature (Nicolasa-wound Skin No Abnormality Appearance) (Pt Warm) -Tenderness on Palpation (Nicolasa-wound No Skin Appearance) -Ulcer Cleansing soap and water -Anesthetic Used 5% Lidocaine Gel #1 Right Knee -Current Size (cm) - Length 4 -Current Size (cm) - Width 2 -Current Size (cm) - Depth 0.1 -Total Square Cm 8 -Exudate Amt Medium -Exudate Type Purulent -Texture (Nicolasa-wound Skin Appearance) No Abnormality, Assessed -Moisture (Nicolasa-wound Skin Appearance) No Abnormality, Assessed -Color (Nicolasa-wound Skin Appearance) No Abnormality, Assessed -Temperature (Nicolasa-wound Skin No Abnormality Appearance) (Pt Warm) -Tenderness on Palpation (Nicolasa-wound No Skin Appearance) -Ulcer Cleansing Not Cleansed Right Calf (cm) 42 Right Ankle (cm) 23.6 Left Calf (cm) 36 Left Ankle (cm) 22.8 WC - Nurse 2 - General Ulcer CM Notes Start: 03/03/21 13:02 Freq: Status: Active Protocol: Activity Type Activity Date Activity User E-Sign Co-Sign Detail Recorded Client Recorded Date Recorded By Document 03/03/21 13:38 MW [id number] 03/03/21 13:56 MW 03/03/21 13:38 Wound Center Nurse 2 #5 R Upper Post arm -Time 13:53 -Correct Patient Yes -Correct Side, Site, Position Yes -Correct Procedure Yes -Procedure Performed Yes -Type of Procedure Debridement -Clinical Debridement Subcutaneous -Tissue Removed Subcutaneous -Post Debridement (cm) - Length 5.5 -Post Debridement (cm) - Width 4.0 -Post Debridement (cm) - Depth 0.2 -Total Square (Post) (cm) 22.00 -Area of Debridement (cm) - Length 5.5 -Area of Debridement (cm) - Width 4.0 -Total Square (Area) (cm) 22.00 -Tunneling No -Undermining/Tunneling No -Circular Undermining No -Wound/Ulcer Outcome Not Healed -Ulcer Cleansing Rinsed/ Irrigated with Saline -Foul Odor after Cleansing No -Bioengineered Tissue No -Bleeding Controlled with Pressure -Offloading No -Treatment Response Procedure Tolerated Well -Debridement - Subq, 1st 20sq cm Yes -Debridement, SubQ, ea addt'l 20sq cm 6 or part thereof #4 R Elbow -Time 13:54 -Correct Patient Yes -Correct Side, Site, Position Yes -Correct Procedure Yes -Procedure Performed Yes -Type of Procedure Debridement -Clinical Debridement Subcutaneous -Tissue Removed Subcutaneous -Post Debridement (cm) - Length 4.0 -Post Debridement (cm) - Width 1.5 -Post Debridement (cm) - Depth 0.1 -Total Square (Post) (cm) 6.00 -Area of Debridement (cm) - Length 4.0 -Area of Debridement (cm) - Width 1.5 -Total Square (Area) (cm) 6.00 -Tunneling No -Undermining/Tunneling No -Circular Undermining No -Wound/Ulcer Outcome Not Healed -Ulcer Cleansing Rinsed/ Irrigated with Saline -Foul Odor after Cleansing No -Bioengineered Tissue No -Bleeding Controlled with Pressure -Offloading No -Treatment Response Procedure Tolerated Well -Debridement - Subq, 1st 20sq cm No #3 L Arm -Time 13:54 -Correct Patient Yes -Correct Side, Site, Position Yes -Correct Procedure Yes -Procedure Performed Yes -Type of Procedure Debridement -Clinical Debridement Subcutaneous -Tissue Removed Subcutaneous -Post Debridement (cm) - Length 22.0 -Post Debridement (cm) - Width 5.0 -Post Debridement (cm) - Depth 0.1 -Total Square (Post) (cm) 110.00 -Area of Debridement (cm) - Length 22.0 -Area of Debridement (cm) - Width 5.0 -Total Square (Area) (cm) 110.00 -Tunneling No -Undermining/Tunneling No -Circular Undermining No -Wound/Ulcer Outcome Not Healed -Ulcer Cleansing Rinsed/ Irrigated with Saline -Foul Odor after Cleansing No -Bioengineered Tissue No -Bleeding Controlled with Pressure -Offloading No -Treatment Response Procedure Tolerated Well -Debridement - Subq, 1st 20sq cm No #2 Left dorsal foot -Time 13:44 -Correct Patient Yes -Correct Side, Site, Position Yes -Correct Procedure Yes -Procedure Performed Yes -Type of Procedure Debridement -Clinical Debridement Subcutaneous -Tissue Removed Subcutaneous -Post Debridement (cm) - Length 0.8 -Post Debridement (cm) - Width 0.9 -Post Debridement (cm) - Depth 0.1 -Total Square (Post) (cm) 0.72 -Area of Debridement (cm) - Length 0.8 -Area of Debridement (cm) - Width 0.9 -Total Square (Area) (cm) 0.72 -Tunneling No -Undermining/Tunneling No -Circular Undermining No -Wound/Ulcer Outcome Not Healed -Ulcer Cleansing Rinsed/ Irrigated with Saline -Foul Odor after Cleansing No -Bioengineered Tissue No -Bleeding Controlled with Pressure -Offloading No -Treatment Response Procedure Tolerated Well -Debridement - Subq, 1st 20sq cm No #1 Right Knee -Time 13:45 -Correct Patient Yes -Correct Side, Site, Position Yes -Correct Procedure Yes -Procedure Performed Yes -Type of Procedure Debridement -Clinical Debridement Subcutaneous -Tissue Removed Subcutaneous -Post Debridement (cm) - Length 2.5 -Post Debridement (cm) - Width 2.5 -Post Debridement (cm) - Depth 0.5 -Total Square (Post) (cm) 6.25 -Area of Debridement (cm) - Length 2.5 -Area of Debridement (cm) - Width 2.5 -Total Square (Area) (cm) 6.25 -Tunneling No -Undermining/Tunneling No -Circular Undermining No -Wound/Ulcer Outcome Not Healed -Ulcer Cleansing Rinsed/ Irrigated with Saline -Foul Odor after Cleansing No -Bioengineered Tissue Yes -Type of Bioengineered Tissue Apligraf -Expiration Date 03/04/21 -Product Lot Number [id number] -Percent Used 14 -Lot number of Saline Used [id number] -Bleeding Controlled with Pressure -Other apligraf waste 37.75 -Offloading No -Treatment Response Procedure Tolerated Well -Debridement - Subq, 1st 20sq cm No -Apply Skin Sub - 1st 25 sq cm - Legs 1 -Apligraf (per sq cm) 6.2 WC - Nurse 3 - General Ulcer D/C NN Start: 03/03/21 13:02 Freq: Status: Active Protocol: Activity Type Activity Date Activity User E-Sign Co-Sign Detail Recorded Client Recorded Date Recorded By Document 03/03/21 14:29 ML [id number] 03/03/21 14:32 ML 03/03/21 14:29 Wound Care Nurse 3 #5 R Upper Post arm -Ulcer Cleansing Rinsed/ Irrigated with Saline -Primary Dressing Applied C Hydrogel ($) -Primary Dressing Covered/Secured with Dry Gauze & Roll Gauze, Secured with Tape #4 R Elbow -Ulcer Cleansing Rinsed/ Irrigated with Saline -Foul Odor after Cleansing No -Other Dressing HYDROGEL -Primary Dressing Covered/Secured with Dry Gauze & Roll Gauze, Secured with Tape #3 L Arm -Ulcer Cleansing Rinsed/ Irrigated with Saline -Other Dressing HYDROGEL -Primary Dressing Covered/Secured with Dry Gauze & Roll Gauze, Secured with Tape #2 Left dorsal foot -Ulcer Cleansing Rinsed/ Irrigated with Saline -Primary Dressing Applied Silvercel -Primary Dressing Covered/Secured with Dry Gauze -Silvercel 1 #1 Right Knee -Ulcer Cleansing Rinsed/ Irrigated with Saline -Primary Dressing Applied Aquacel Extra -Other Dressing 3M -Other Covering TUBIGRIPS SIZE F APPLIED TO BILATERAL ARMS. -Aquacel Extra 1 Left -Multi-Layered Wrap Application Multi-Layer Comp - Bilat ($ ) Additional Wound Wound debrided: Right VL U, left foot ulcer, bilateral arm skin tears Type of Debridement: Excisional debridement Anesthesia Used: 5% Lidocaine Gel Depth: Down to and including healthy tissue and in the subcutaneous layer Percentage of wound debrided: 100 Instrument Used: 5mm curette Tissue Removed: Slough and devitalized tissue Severity: Fat Layer Exposed Amount of bleeding with debridement: Mild Bleeding Controlled with: Pressure Patient tolerated procedure: Patient tolerated procedure well Assessment/Plan Assessment/Plan (1) Venous stasis ulcer of right lower leg with edema of right lower leg: CODE(S): I83.019 - Varicose veins of right lower extremity with ulcer of unspecified site; I83.891 - Varicose veins of right lower extremity with other complications; L97.919 - Non-pressure chronic ulcer of unspecified part of right lower leg with unspecified severity; R60.9 - Edema, unspecified (2) Venous ulcer of right leg: CODE(S): I83.019 - Varicose veins of right lower extremity with ulcer of unspecified site; L97.919 - Non-pressure chronic ulcer of unspecified part of right lower leg with unspecified severity (3) Non-healing ulcer of left foot: CODE(S): L97.529 - Non-pressure chronic ulcer of other part of left foot with unspecified severity QUALIFIERS: Non-pressure ulcer stage: with fat layer exposed Qualified Code(s): L97.522 - Non-pressure chronic ulcer of other part of left foot with fat layer exposed (4) Bilateral lower extremity edema: CODE(S): R60.0 - Localized edema (5) CAD (coronary artery disease): CODE(S): I25.10 - Atherosclerotic heart disease of [place] coronary artery without angina pectoris (6) Hyperlipidemia: CODE(S): E78.5 - Hyperlipidemia, unspecified (7) Benign essential hypertension: CODE(S): I10 - Essential (primary) hypertension (8) Skin tear of left upper arm without complication: CODE(S): S41.112A - Laceration without foreign body of left upper arm, initial encounter (9) Skin tear of right upper arm without complication: CODE(S): S41.111A - Laceration without foreign body of right upper arm, initial encounter PLAN: Debridement performed today in clinic as annotated above. At home wound-care instructions: Silver cell moistened cover with gauze to left foot ulcer and apligraf was applied to right VLU and covered with adaptic and steris, 37.75 units were wasted due to wound size and wound center policy, 3m wraps over top to be changed in 4 days. Hydrogel cover with Adaptic and gauze to upper extremity skin tears. Compression: 3m wraps for compression, patient states that he had vascular studies done at , will request. Off-loading: The patient was instructed to avoid pressure and friction on the affected areas. Reposition every 2 hours at minimum. Avoid prolonged standing and/or dangling of legs. When seated, feet should be elevated at chest level. Frequent ambulation is encouraged. Diet: Patient encouraged to increase protein intake while taking caution to avoid high carbohydrate and/or sugar intake. Patient is a non-smoker Labs/cultures/imaging:. Routine baseline lab work ordered, BNP ordered, both blood work is still pending at this time. Vascular studies ordered. Given the delayed wound healing and fact that this is a venous leg ulcer of the right lower extremity with a known history of PVD, an advanced skin substitute will be ordered. Follow-up: Return to clinic in 1 week for re-evaluation. Wound cultures were reviewed and showed rare bacteria, no indication for any changes in therapy at this time return sooner or report to the emergency room should symptoms worsen, or new symptoms arise. This note was generated with [employer] dictation software. It may contain incorrect words, spelling, and punctuation that were not noted in checking the note before signing. I have spent 35 minutes today reviewing labs, records, and history. Time includes coordinating care, interpretation of tests, and counseling the patient/family. This also includes time I spent with the patient for exam, treatment plan, and education as well as documenting clinical information in the electronic health record.
[2021-03-10 13:14] VITALS: BP 158/85; PULSE 86; RESP 22; TEMP 36.6
--- NOTE | 2021-03-10 17:42 | PN.PCM_ITS ---
History of Present Illness Date of Service: 03/10/21 Chief Complaint: Nonhealing venous leg ulcers right lower extremity and left foot History of Wound: This is an 80-year-old male who presents to the wound healing center today with complaint of nonhealing bilateral lower extremity ulcers. He does have a past medical history significant for CAD, hyperlipidemia, hypertension, PVD,and hypothyroidism. He states that his wounds to his bilateral lower extremities have been present since August 2020 after he was on a blood thinner for recurrent DVT and fell. He states that he was taken off the blood thinner and is now on aspirin 325 mg daily and has had issues with his ulcers to his lower extremities not healing. He also brings up worsening lower extremity edema that now goes up into his thighs. He states that he is more short of breath with exertion and he notes orthopnea as well. He denies any history of CHF but does state that he has followed up with cardiology in the past for a prior IA. He states he is consistent with his Lasix therapy. He denies any other acute concerns. For wound care he has been utilizing covering the site with Neosporin, gauze, and Umesh wraps. He notes a large amount of clear drainage. Past medical, family, and social history reviewed and not pertinent to the current visit and all other systems reviewed and negative with exception of those listed above. 03/03/2021?patient reports a mechanical fall where he tripped over a rug in his kitchen and bumped his bilateral arms and developed skin tears. He reports that this is his second mechanical fall over the past year. He states that he feels safe at home and does not have any issues caring for himself and does not feel it necessary that he go to an assisted living or snf facility. Progress of Wound: Patient's lower extremity ulcers are improving, the right lower extremity ulcer has done very well with Apligraf and the left lower extremity ulcer has healed, he did develop new skin tears to his bilateral arms after a recent fall and these have improved in size as well Objective Data Objective Data Vital Signs: Vital Signs Temp Pulse Resp BP 97.8 F 86 22 H 158/85 H 03/10/21 13:14 03/10/21 13:14 03/10/21 13:14 03/10/21 13:14 Charges/Coding Procedures Integumentary 111xxx-113xx: [id number] Marnie subq tissue 20 sq cm/< 150xxx-152xx: [id number] Skin sub graft trnk/arm/leg Add On Codes: 84849 Marnie subq tissue add-on (x 4) Physical Exam Const alert, oriented x3, no apparent distress, healthy appearing and well nourished General Appearance: cooperative Exam Limitations: no limitations HEENT normocephalic Head and Scalp: normal to inspection Mouth: oral and palatal mucosa normal Eyes General Eye: normal appearance of both eyes Resp normal air movement Effort and Inspection: able to speak in complete sentences Auscultation: crackles bilateral Cardio regular rate, regular rhythm, S1 normal heart sound, S2 normal heart sound, no murmurs and peripheral pulses 2+ throughout Palpation: normal PMI Rate: regular rate Heart Sounds: S1 normal and S2 normal GI normal to inspection, nondistended, normoactive bowel sounds, soft to palpation, non-tender and non-distended Palpation: soft Extremity normal to inspection and full ROM General Extremity: normal exam except as noted Skin Skin Narrative: 2+ pitting edema to the bilateral lower extremities which is below the knees, wounds present to the right lower extremity with small amount of adherent slough and there is no undermining present at this time, no surrounding erythema small amount of drainage. Patient does have multiple skin tears present on his left arm, right elbow, and right upper posterior arm, slough present but no signs of obvious infection. Chronic venous changes present to bilateral lower extremities as well. Dorsal pedis pulses present 2+ Neuro oriented x3 and moves all extremities Sensorium / Orientation: awake, alert, oriented to person, oriented to place and oriented to time Psych mental status grossly normal, thought process normal and denies hallucinations Appearance: grossly normal Attitude: calm Activity / Motor Behavior: appropriate eye contact Speech: normal speech Thought Process: normal thought process Thought Content: normal thought content Attention / Concentration: attention grossly intact Insight: insight good Judgement: judgement good Debridement Note Debridement Note Post-Debridement Measurements and Additional Note: Post-Debridement Measurements/Treatment WC - Nurse 1 - General Ulcer Assessment Start: 03/03/21 13:02 Freq: Status: Active Protocol: CEDRIC.NAYE Activity Type Activity Date Activity User E-Sign Co-Sign Detail Recorded Client Recorded Date Recorded By Document 03/03/21 13:02 DL [id number] 03/03/21 13:26 DL Document 03/10/21 13:14 DL [id number] 03/10/21 13:30 DL 03/03/21 03/10/21 13:02 13:14 WC - Today's Visit Information Type of service Follow-up Visit Follow-up Visit (Physician/POST HOLE DIGGING MACHINE OPERATOR (Physician/POST HOLE DIGGING MACHINE OPERATOR ) ) Arrival Mode Ambulatory, Ambulatory Walker Transfer Assistance Stretcher None Patient Identification Verified (Name & Yes Yes ) Patient Requires Transmission-Based No No Precautions Vital Signs Temperature (97.8 F-99.1 F) 97.9 F 97.8 F Temperature Source Temporal Temporal Pulse Rate (60-100) 87 86 Pulse Location Monitor Monitor Respiratory Rate (12-18) 18 22 H Respiratory rate source Observation Observation Blood Pressure (90/60-120/80) 173/83 H 158/85 H Blood Pressure Mean (mm Hg) 113 109 Source Monitor Monitor History Since Last Visit- (Skip if this is Patient's initial visit) Have you changed medications since your No No last visit? Any new allergies or adverse reactions No No Had a fall/change in ADL's that may No No increase risk of falls Signs or symptoms of abuse and/or No No neglect since last visit Have you been in the hospital since your No No last visit? Has dressing in place as prescribed Yes Yes Has compression in place as prescribed Yes Yes Has offloadiing in place as prescribed No N/A Experienced any changes in pain level or Yes No management Left Footwear Surgical Shoe with pressure relief insole Right Footwear Slipper Pain Scale: 0-10 Numeric Is Patient Pain Free? Yes Yes - Nurse 1 - General Ulcer Measurement Start: 03/03/21 13:02 Freq: Status: Active Protocol: Activity Type Activity Date Activity User E-Sign Co-Sign Detail Recorded Client Recorded Date Recorded By Document 03/03/21 13:02 DL [id number] 03/03/21 13:26 DL Document 03/10/21 13:14 DL [id number] 03/10/21 13:30 DL 03/03/21 03/10/21 13:02 13:14 Wound Center Nurse 1 #5 R Upper Post arm -Current Size (cm) - Length 5 4 -Current Size (cm) - Width 4.1 3 -Current Size (cm) - Depth 0.1 0.1 -Total Square Cm 20.5 12 -Photo Taken Yes -Classification - Thickness Full Thickness without Exposed Support Structure -Exudate Amt Small Medium -Exudate Type Serosanguineous Serosanguineous -Wound Margin Indistinct, Non Flat & Intact -Visible -Granulation Amt Large (67-100%) Large (67-100%) -Granulation Quality Red Pale,[place] -Necrosis Amt Small (1-33%) Small (1-33%) -Necrotic Tissue Type Adherent Slough Adherent Slough -Structure Exposed N/A -Texture (Nicolasa-wound Skin Appearance) Friable, Assessed Localized Edema ,Scarring -Moisture (Nicolasa-wound Skin Appearance) No Abnormality Assessed -Color (Nicolasa-wound Skin Appearance) Ecchymosis, Assessed Erythema -Temperature (Nicolasa-wound Skin No Abnormality Appearance) (Pt Warm) -Tenderness on Palpation (Nicolasa-wound No Skin Appearance) -Ulcer Cleansing Rinsed/ Irrigated with Saline -Foul Odor after Cleansing No -Anesthetic Used 4% Lidocaine Solution #4 R Elbow -Current Size (cm) - Length 3.6 3.1 -Current Size (cm) - Width 1 0.8 -Current Size (cm) - Depth 0.1 0.1 -Total Square Cm 3.6 2.48 -Photo Taken Yes -Classification - Thickness Full Thickness without Exposed Support Structure -Exudate Amt Small Medium -Exudate Type Serosanguineous Serosanguineous -Wound Margin Distinct, Flat & Intact Outline Attached -Granulation Amt Medium (34-66%) Large (67-100%) -Granulation Quality Pale,[place]idge[place] Pale,[place]field -Slough/Fibrin No -Necrosis Amt Medium (34-66%) Small (1-33%) -Necrotic Tissue Type Adherent Slough -Structure Exposed N/A -Texture (Nicolasa-wound Skin Appearance) Friable, Assessed Localized Edema ,Scarring -Moisture (Nicolasa-wound Skin Appearance) Dry/Scaly Assessed -Color (Nicolasa-wound Skin Appearance) Ecchymosis, Assessed Erythema -Temperature (Nicolasa-wound Skin No Abnormality No Abnormality Appearance) (Pt Warm) (Pt Warm) -Tenderness on Palpation (Nicolasa-wound No No Skin Appearance) -Ulcer Cleansing Rinsed/ Irrigated with Saline -Foul Odor after Cleansing No No -Anesthetic Used 4% Lidocaine 4% Lidocaine Solution Solution #3 L Arm -Current Size (cm) - Length 21 0.1 -Current Size (cm) - Width 8 0.1 -Current Size (cm) - Depth 0.1 0.1 -Total Square Cm 168 0.01 -Photo Taken Yes -Exudate Amt Medium Medium -Exudate Type Serosanguineous Serosanguineous -Wound Margin Indistinct, Non Flat & Intact -Visible -Granulation Amt Large (67-100%) Large (67-100%) -Granulation Quality Red Pale,[place] -Necrosis Amt Small (1-33%) Small (1-33%) -Necrotic Tissue Type Adherent Slough Adherent Slough -Structure Exposed N/A -Texture (Nicolasa-wound Skin Appearance) Friable, Assessed Localized Edema -Moisture (Nicolasa-wound Skin Appearance) No Abnormality Assessed -Color (Nicolasa-wound Skin Appearance) Ecchymosis, Assessed Erythema -Temperature (Nicolasa-wound Skin No Abnormality No Abnormality Appearance) (Pt Warm) (Pt Warm) -Tenderness on Palpation (Nicolasa-wound No No Skin Appearance) -Ulcer Cleansing Wound Cleanser Rinsed/ Irrigated with Saline -Foul Odor after Cleansing No No -Anesthetic Used 4% Lidocaine 4% Lidocaine Solution Solution #2 Left dorsal foot -Current Size (cm) - Length 0.7 0.1 -Current Size (cm) - Width 0.6 0.1 -Current Size (cm) - Depth 0.1 0.1 -Total Square Cm 0.42 0.01 -Photo Taken No -Tunneling No -Undermining/Tunneling No -Circular Undermining No -Exudate Amt Medium None Present -Exudate Type Serosanguineous Serosanguineous -Wound Margin Distinct, Flat & Intact Outline Attached -Granulation Amt Medium (34-66%) Large (67-100%) -Granulation Quality [place] Pale,[place] -Slough/Fibrin Yes -Necrosis Amt Small (1-33%) Small (1-33%) -Necrotic Tissue Type Adherent Slough Adherent Slough -Texture (Nicolasa-wound Skin Appearance) No Abnormality, Assessed Assessed -Moisture (Nicolasa-wound Skin Appearance) No Abnormality, Assessed, Assessed Maceration -Color (Nicolasa-wound Skin Appearance) No Abnormality, Assessed Assessed -Temperature (Nicolasa-wound Skin No Abnormality No Abnormality Appearance) (Pt Warm) (Pt Warm) -Tenderness on Palpation (Nicolasa-wound No No Skin Appearance) -Ulcer Cleansing soap and water Rinsed/ Irrigated with Saline -Foul Odor after Cleansing No -Anesthetic Used 5% Lidocaine 4% Lidocaine Gel Solution #1 Right Knee -Current Size (cm) - Length 4 3 -Current Size (cm) - Width 2 2.3 -Current Size (cm) - Depth 0.1 0.1 -Total Square Cm 8 6.9 -Exudate Amt Medium Medium -Exudate Type Purulent Serosanguineous -Wound Margin Flat & Intact -Granulation Amt Medium (34-66%) -Granulation Quality Red -Slough/Fibrin No -Texture (Nicolasa-wound Skin Appearance) No Abnormality, Assessed Assessed -Moisture (Nicolasa-wound Skin Appearance) No Abnormality, Assessed, Assessed Maceration -Color (Nicolasa-wound Skin Appearance) No Abnormality, Assessed Assessed -Temperature (Nicolasa-wound Skin No Abnormality No Abnormality Appearance) (Pt Warm) (Pt Warm) -Tenderness on Palpation (Nicolasa-wound No No Skin Appearance) -Ulcer Cleansing Not Cleansed Rinsed/ Irrigated with Saline -Foul Odor after Cleansing No -Anesthetic Used 4% Lidocaine Solution Right Calf (cm) 42 39 Right Ankle (cm) 23.6 25 Left Calf (cm) 36 36 Left Ankle (cm) 22.8 23 WC - Nurse 2 - General Ulcer CM Notes Start: 03/03/21 13:02 Freq: Status: Active Protocol: Activity Type Activity Date Activity User E-Sign Co-Sign Detail Recorded Client Recorded Date Recorded By Document 03/03/21 13:38 MW [id number] 03/03/21 13:56 MW Document 03/10/21 13:39 MT [id number] 03/10/21 13:57 MT 03/03/21 03/10/21 13:38 13:39 Wound Center Nurse 2 #5 R Upper Post arm -Time 13:53 13:39 -Correct Patient Yes Yes -Correct Side, Site, Position Yes Yes -Correct Procedure Yes Yes -Procedure Performed Yes Yes -Type of Procedure Debridement Debridement -Clinical Debridement Subcutaneous Subcutaneous -Tissue Removed Subcutaneous Subcutaneous -Post Debridement (cm) - Length 5.5 4.5 -Post Debridement (cm) - Width 4.0 3 -Post Debridement (cm) - Depth 0.2 0.1 -Total Square (Post) (cm) 22.00 13.5 -Area of Debridement (cm) - Length 5.5 4.5 -Area of Debridement (cm) - Width 4.0 3 -Total Square (Area) (cm) 22.00 13.5 -Tunneling No No -Undermining/Tunneling No No -Circular Undermining No No -Wound/Ulcer Outcome Not Healed Not Healed -Ulcer Cleansing Rinsed/ Rinsed/ Irrigated with Irrigated with Saline Saline -Foul Odor after Cleansing No No -Bioengineered Tissue No No -Bleeding Controlled with Pressure Pressure -Offloading No No -Treatment Response Procedure Procedure Tolerated Well Tolerated Well -Debridement - Subq, 1st 20sq cm Yes Yes -Debridement, SubQ, ea addt'l 20sq cm 6 4 or part thereof #4 R Elbow -Time : 13:48 -Correct Patient Yes Yes -Correct Side, Site, Position Yes Yes -Correct Procedure Yes Yes -Procedure Performed Yes Yes -Type of Procedure Debridement Debridement -Clinical Debridement Subcutaneous Subcutaneous -Tissue Removed Subcutaneous Subcutaneous -Post Debridement (cm) - Length 4.0 4 -Post Debridement (cm) - Width 1.5 1 -Post Debridement (cm) - Depth 0.1 0.1 -Total Square (Post) (cm) 6.00 4 -Area of Debridement (cm) - Length 4.0 4 -Area of Debridement (cm) - Width 1.5 1 -Total Square (Area) (cm) 6.00 4 -Tunneling No No -Undermining/Tunneling No No -Circular Undermining No No -Wound/Ulcer Outcome Not Healed Not Healed -Ulcer Cleansing Rinsed/ Rinsed/ Irrigated with Irrigated with Saline Saline -Foul Odor after Cleansing No No -Bioengineered Tissue No No -Bleeding Controlled with Pressure Pressure -Offloading No No -Treatment Response Procedure Procedure Tolerated Well Tolerated Well -Debridement - Subq, 1st 20sq cm No No #3 L Arm -Time 13:49 -Correct Patient Yes Yes -Correct Side, Site, Position Yes Yes -Correct Procedure Yes Yes -Procedure Performed Yes Yes -Type of Procedure Debridement Debridement -Clinical Debridement Subcutaneous Subcutaneous -Tissue Removed Subcutaneous Subcutaneous -Post Debridement (cm) - Length 22.0 21 -Post Debridement (cm) - Width 5.0 3.0 -Post Debridement (cm) - Depth 0.1 0.1 -Total Square (Post) (cm) 110.00 63.0 -Area of Debridement (cm) - Length 22.0 21 -Area of Debridement (cm) - Width 5.0 3 -Total Square (Area) (cm) 110.00 63 -Tunneling No No -Undermining/Tunneling No No -Circular Undermining No No -Wound/Ulcer Outcome Not Healed Not Healed -Ulcer Cleansing Rinsed/ Rinsed/ Irrigated with Irrigated with Saline Saline -Foul Odor after Cleansing No No -Bioengineered Tissue No No -Bleeding Controlled with Pressure Pressure -Offloading No No -Treatment Response Procedure Procedure Tolerated Well Tolerated Well -Debridement - Subq, 1st 20sq cm No No #2 Left dorsal foot -Time 13:44 13:45 -Correct Patient Yes Yes -Correct Side, Site, Position Yes Yes -Correct Procedure Yes Yes -Procedure Performed Yes No -Type of Procedure Debridement -Clinical Debridement Subcutaneous -Tissue Removed Subcutaneous -Post Debridement (cm) - Length 0.8 0 -Post Debridement (cm) - Width 0.9 0 -Post Debridement (cm) - Depth 0.1 0 -Total Square (Post) (cm) 0.72 0 -Area of Debridement (cm) - Length 0.8 -Area of Debridement (cm) - Width 0.9 -Total Square (Area) (cm) 0.72 -Tunneling No -Undermining/Tunneling No -Circular Undermining No -Wound/Ulcer Outcome Not Healed Healed- Epithelialized -Ulcer Cleansing Rinsed/ Irrigated with Saline -Foul Odor after Cleansing No -Bioengineered Tissue No -Bleeding Controlled with Pressure -Offloading No -Treatment Response Procedure Tolerated Well -Debridement - Subq, 1st 20sq cm No #1 Right Knee -Time 13:45 13:50 -Correct Patient Yes Yes -Correct Side, Site, Position Yes Yes -Correct Procedure Yes Yes -Procedure Performed Yes Yes -Type of Procedure Debridement Debridement -Clinical Debridement Subcutaneous Subcutaneous -Tissue Removed Subcutaneous Subcutaneous -Post Debridement (cm) - Length 2.5 1.5 -Post Debridement (cm) - Width 2.5 2.0 -Post Debridement (cm) - Depth 0.5 0.4 -Total Square (Post) (cm) 6.25 3.00 -Area of Debridement (cm) - Length 2.5 1.5 -Area of Debridement (cm) - Width 2.5 2.0 -Total Square (Area) (cm) 6.25 3.00 -Tunneling No No -Undermining/Tunneling No No -Circular Undermining No No -Wound/Ulcer Outcome Not Healed Not Healed -Ulcer Cleansing Rinsed/ Rinsed/ Irrigated with Irrigated with Saline Saline -Foul Odor after Cleansing No No -Bioengineered Tissue Yes Yes -Type of Bioengineered Tissue Apligraf Apligraf -Expiration Date 03/04/21 03/11/21 -Product Lot Number [id number] -Percent Used 14 7 -Lot number of Saline Used [id number] -Bleeding Controlled with Pressure Pressure -Other apligraf waste wasted 41SQcm 37.75 -Offloading No No -Treatment Response Procedure Procedure Tolerated Well Tolerated Well -Debridement - Subq, 1st 20sq cm No No -Apply Skin Sub - 1st 25 sq cm - Legs 1 1 -Apligraf (per sq cm) 6.2 3 Pain Scale: 0-10 Numeric Is Patient Pain Free? Yes WC - Nurse 3 - General Ulcer D/C NN Start: 03/03/21 13:02 Freq: Status: Active Protocol: Activity Type Activity Date Activity User E-Sign Co-Sign Detail Recorded Client Recorded Date Recorded By Document 03/03/21 14:29 ML [id number] 03/03/21 14:32 ML Document 03/10/21 14:17 AK [id number] 03/10/21 14:20 AK 03/03/21 03/10/21 14:29 14:17 Wound Care Nurse 3 #5 R Upper Post arm -Ulcer Cleansing Rinsed/ Rinsed/ Irrigated with Irrigated with Saline Saline -Foul Odor after Cleansing No -Primary Dressing Applied C Hydrogel ($) C Hydrogel ($) -Primary Dressing Covered/Secured with Dry Gauze & Dry Gauze & Roll Gauze, Roll Gauze Secured with Tape -Aquacel Extra 1 #4 R Elbow -Ulcer Cleansing Rinsed/ Rinsed/ Irrigated with Irrigated with Saline Saline -Foul Odor after Cleansing No No -Primary Dressing Applied Aquacel Extra -Other Dressing HYDROGEL -Primary Dressing Covered/Secured with Dry Gauze & Dry Gauze & Roll Gauze, Roll Gauze, Secured with Secured with Tape Tape -Aquacel Extra 0 #3 L Arm -Ulcer Cleansing Rinsed/ Rinsed/ Irrigated with Irrigated with Saline Saline -Foul Odor after Cleansing No -Primary Dressing Applied C Hydrogel ($), NonAdherent Contact Layer -Other Dressing HYDROGEL -Primary Dressing Covered/Secured with Dry Gauze & Dry Gauze & Roll Gauze, Roll Gauze Secured with Tape #2 Left dorsal foot -Ulcer Cleansing Rinsed/ Irrigated with Saline -Primary Dressing Applied Silvercel -Primary Dressing Covered/Secured with Dry Gauze -Silvercel 1 #1 Right Knee -Ulcer Cleansing Rinsed/ Rinsed/ Irrigated with Irrigated with Saline Saline -Primary Dressing Applied Aquacel Extra Aquacel Extra -Other Dressing 3M -Primary Dressing Covered/Secured with Dry Gauze -Other Covering TUBIGRIPS SIZE F APPLIED TO BILATERAL ARMS. -Aquacel Extra 1 0 Left -Multi-Layered Wrap Application Multi-Layer Multi-Layer Comp - Bilat ($ Comp - Bilat ($ ) ) WC - Visit Discharge Discharge Condition Stable Ambulatory Status Ambulatory Clinical Summary of Care Provided Yes Additional Wound Wound debrided: Right VL U, bilateral arm skin tears Type of Debridement: Excisional debridement Anesthesia Used: 5% Lidocaine Gel Depth: Down to and including healthy tissue and in the subcutaneous layer Percentage of wound debrided: 100 Instrument Used: 5mm curette Tissue Removed: Slough and devitalized tissue Severity: Fat Layer Exposed Amount of bleeding with debridement: Mild Bleeding Controlled with: Pressure Patient tolerated procedure: Patient tolerated procedure well Assessment/Plan Assessment/Plan (1) Venous stasis ulcer of right lower leg with edema of right lower leg: CODE(S): I83.019 - Varicose veins of right lower extremity with ulcer of unspecified site; I83.891 - Varicose veins of right lower extremity with other complications; L97.919 - Non-pressure chronic ulcer of unspecified part of right lower leg with unspecified severity; R60.9 - Edema, unspecified (2) Venous ulcer of right leg: CODE(S): I83.019 - Varicose veins of right lower extremity with ulcer of unspecified site; L97.919 - Non-pressure chronic ulcer of unspecified part of right lower leg with unspecified severity (3) Non-healing ulcer of left foot: CODE(S): L97.529 - Non-pressure chronic ulcer of other part of left foot with unspecified severity QUALIFIERS: Non-pressure ulcer stage: with fat layer exposed Qualified Code(s): L97.522 - Non-pressure chronic ulcer of other part of left foot with fat layer exposed (4) Bilateral lower extremity edema: CODE(S): R60.0 - Localized edema (5) CAD (coronary artery disease): CODE(S): I25.10 - Atherosclerotic heart disease of [place] coronary artery without angina pectoris (6) Hyperlipidemia: CODE(S): E78.5 - Hyperlipidemia, unspecified (7) Benign essential hypertension: CODE(S): I10 - Essential (primary) hypertension (8) Skin tear of left upper arm without complication: CODE(S): S41.112A - Laceration without foreign body of left upper arm, initial encounter (9) Skin tear of right upper arm without complication: CODE(S): S41.111A - Laceration without foreign body of right upper arm, initial encounter PLAN: Debridement performed today in clinic as annotated above. At home wound-care instructions: Silver cell moistened cover with gauze to recently healed left foot ulcer and 3rd apligraf was applied to right VLU and covered with adaptic and steris, 41 units were wasted due to wound size and wound center policy, 3m wraps over top to be changed twice a week. Hydrogel cover with Adaptic and gauze to upper extremity skin tears, change 2-3 x per week. Compression: 3m wraps for compression, patient states that he had vascular studies done at , will request. Off-loading: The patient was instructed to avoid pressure and friction on the affected areas. Reposition every 2 hours at minimum. Avoid prolonged standing and/or dangling of legs. When seated, feet should be elevated at chest level. Frequent ambulation is encouraged. Diet: Patient encouraged to increase protein intake while taking caution to shawn id high carbohydrate and/or sugar intake. Patient is a non-smoker Labs/cultures/imaging:. Routine baseline lab work ordered, BNP ordered, both blood work is still pending at this time. Vascular studies ordered. Given the delayed wound healing and fact that this is a venous leg ulcer of the right lower extremity with a known history of PVD, an advanced skin substitute will be ordered. Follow-up: Return to clinic in 2 week for re-evaluation. Wound cultures were reviewed and showed rare bacteria, no indication for any changes in therapy at this time return sooner or report to the emergency room should symptoms worsen, or new symptoms arise. This note was generated with [employer] software. It may contain incorrect words, spelling, and punctuation that were not noted in checking the note before signing. I have spent 35 minutes today reviewing labs, records, and history. Time includes coordinating care, interpretation of tests, and counseling the patient/family. This also includes time I spent with the patient for exam, treatment plan, and education as well as documenting clinical information in the electronic health record.
[2021-03-24 14:18] VITALS: BP 165/82; PULSE 84; TEMP 36.2
--- NOTE | 2021-03-24 16:54 | PN.PCM_ITS ---
History of Present Illness Date of Service: 03/24/21 Chief Complaint: Nonhealing venous leg ulcers right lower extremity and left foot History of Wound: This is an 80-year-old male who presents to the wound healing center today with complaint of nonhealing bilateral lower extremity ulcers. He does have a past medical history significant for CAD, hyperlipidemia, hypertension, PVD,and hypothyroidism. He states that his wounds to his bilateral lower extremities have been present since August 2020 after he was on a blood thinner for recurrent DVT and fell. He states that he was taken off the blood thinner and is now on aspirin 325 mg daily and has had issues with his ulcers to his lower extremities not healing. He also brings up worsening lower extremity edema that now goes up into his thighs. He states that he is more short of breath with exertion and he notes orthopnea as well. He denies any history of CHF but does state that he has followed up with cardiology in the past for a prior SC. He states he is consistent with his Lasix therapy. He denies any other acute concerns. For wound care he has been utilizing covering the site with Neosporin, gauze, and Umesh wraps. He notes a large amount of clear drainage. Past medical, family, and social history reviewed and not pertinent to the current visit and all other systems reviewed and negative with exception of those listed above. 03/03/2021?patient reports a mechanical fall where he tripped over a rug in his kitchen and bumped his bilateral arms and developed skin tears. He reports that this is his second mechanical fall over the past year. He states that he feels safe at home and does not have any issues caring for himself and does not feel it necessary that he go to an assisted living or senior living facility. Progress of Wound: Patient's lower extremity ulcers are improving, the right lower extremity ulcer has done very well with Apligraf and the left lower extremity ulcer has healed, he did develop new skin tears to his bilateral arms after a recent fall and the right has healed and the left has improved in size. Now that the patient's wounds are improving dramatically, would recommend that going forward once he is healed that he utilize CircAid's for compression. These were ordered today. Objective Data Objective Data Vital Signs: Vital Signs Temp Pulse Resp BP 97.2 F L 84 22 H 165/82 H 03/24/21 14:18 03/24/21 14:18 03/10/21 13:14 03/24/21 14:18 Charges/Coding Procedures Integumentary [id number]: [id number] Marnie subq tissue 20 sq cm/< Physical Exam Const alert, oriented x3, no apparent distress, healthy appearing and well nourished General Appearance: cooperative Exam Limitations: no limitations HEENT normocephalic Head and Scalp: normal to inspection Mouth: oral and palatal mucosa normal Eyes General Eye: normal appearance of both eyes Resp normal air movement Effort and Inspection: able to speak in complete sentences Auscultation: crackles bilateral Cardio regular rate, regular rhythm, S1 normal heart sound, S2 normal heart sound, no murmurs and peripheral pulses 2+ throughout Palpation: normal PMI Rate: regular rate Heart Sounds: S1 normal and S2 normal GI normal to inspection, nondistended, normoactive bowel sounds, soft to palpation, non-tender and non-distended Palpation: soft Extremity normal to inspection and full ROM General Extremity: normal exam except as noted Skin Skin Narrative: 1+ pitting edema to the bilateral lower extremities which is below the knees, wounds present to the right lower extremity with small amount of adherent slough and there is no undermining present at this time, no surrounding erythema small amount of drainage. Patient does have multiple skin tears present on his left arm which has improved in size, right elbow, and right upper posterior arm are both healed without any signs of infection. Chronic venous changes present to bilateral lower extremities as well. Dorsal pedis pulses present 2+ Neuro oriented x3 and moves all extremities Sensorium / Orientation: awake, alert, oriented to person, oriented to place and oriented to time Psych mental status grossly normal, thought process normal and denies hallucinations Appearance: grossly normal Attitude: calm Activity / Motor Behavior: appropriate eye contact Speech: normal speech Thought Process: normal thought process Thought Content: normal thought content Attention / Concentration: attention grossly intact Insight: insight good Judgement: judgement good Debridement Note Debridement Note Post-Debridement Measurements and Additional Note: Post-Debridement Measurements/Treatment WC - Nurse 1 - General Ulcer Assessment Start: 03/03/21 13:02 Freq: Status: Active Protocol: BENJA Activity Type Activity Date Activity User E-Sign Co-Sign Detail Recorded Client Recorded Date Recorded By Document 03/03/21 13:02 LEYDI [id number] 03/03/21 13:26 DL Document 03/10/21 13:14 DL [id number] 03/10/21 13:30 DL Document 03/24/21 14:18 AK [id number] 03/24/21 14:41 AK 03/03/21 03/10/21 03/24/21 13:02 13:14 14:18 - Today's Visit Information Type of service Follow-up Visit Follow-up Visit Follow-up Visit (Physician/MODELING AND SIMULATION ANALYST (Physician/MODELING AND SIMULATION ANALYST (Physician/MODELING AND SIMULATION ANALYST ) ) ) Arrival Mode Ambulatory, Ambulatory Ambulatory, Walker Walker Transfer Assistance Stretcher None Patient Identification Verified (Name & Yes Yes Yes ) Patient Requires Transmission-Based No No Precautions Vital Signs Temperature (97.8 F-99.1 F) 97.9 F 97.8 F 97.2 F L Temperature Source Temporal Temporal Temporal Pulse Rate (60-100) 87 86 84 Pulse Location Monitor Monitor Monitor Respiratory Rate (12-18) 18 22 H Respiratory rate source Observation Observation Blood Pressure (90/60-120/80) 173/83 H 158/85 H 165/82 H Blood Pressure Mean (mm Hg) 113 109 109 Source Monitor Monitor Monitor History Since Last Visit- (Skip if this is Patient's initial visit) Have you changed medications since your No No No last visit? Any new allergies or adverse reactions No No No Had a fall/change in ADL's that may No No No increase risk of falls Signs or symptoms of abuse and/or No No No neglect since last visit Have you been in the hospital since your No No No last visit? Has dressing in place as prescribed Yes Yes Yes Has compression in place as prescribed Yes Yes Yes Has offloadiing in place as prescribed No N/A N/A Experienced any changes in pain level or Yes No No management Left Footwear Surgical Shoe Regular Shoe with pressure relief insole Right Footwear Slipper Regular Shoe Pain Scale: 0-10 Numeric Is Patient Pain Free? Yes Yes - Nurse 1 - General Ulcer Measurement Start: 03/03/21 13:02 Freq: Status: Active Protocol: Activity Type Activity Date Activity User E-Sign Co-Sign Detail Recorded Client Recorded Date Recorded By Document 03/03/21 13:02 DL [id number] 03/03/21 13:26 DL Document 03/10/21 13:14 DL [id number] 08/12/21 13:30 DL Document 03/24/21 14:18 AK [id number] 03/24/21 14:41 AK 03/03/21 03/10/21 03/24/21 13:02 13:14 14:18 Wound Center Nurse 1 #5 R Upper Post arm -Current Size (cm) - Length 5 4 0.1 -Current Size (cm) - Width 4.1 3 0.1 -Current Size (cm) - Depth 0.1 0.1 0.1 -Total Square Cm 20.5 12 0.01 -Photo Taken Yes -Tunneling No -Undermining/Tunneling No -Circular Undermining No -Classification - Thickness Full Thickness without Exposed Support Structure -Exudate Amt Small Medium None Present -Exudate Type Serosanguineous Serosanguineous -Wound Margin Indistinct, Non Flat & Intact -Visible -Granulation Amt Large (67-100%) Large (67-100%) None Present (0 %) -Granulation Quality Red Pale,[place] -Necrosis Amt Small (1-33%) Small (1-33%) None Present (0 %) -Necrotic Tissue Type Adherent Slough Adherent Slough -Structure Exposed N/A -Texture (Nicolasa-wound Skin Appearance) Friable, Assessed No Abnormality, Localized Edema Assessed ,Scarring -Moisture (Nicolasa-wound Skin Appearance) No Abnormality Assessed No Abnormality, Assessed -Color (Nicolasa-wound Skin Appearance) Ecchymosis, Assessed No Abnormality, Erythema Assessed -Temperature (Nicolasa-wound Skin No Abnormality No Abnormality Appearance) (Pt Warm) (Pt Warm) -Tenderness on Palpation (Nicolasa-wound No No Skin Appearance) -Ulcer Cleansing Rinsed/ Rinsed/ Irrigated with Irrigated with Saline Saline -Foul Odor after Cleansing No -Anesthetic Used 4% Lidocaine Solution #4 R Elbow -Current Size (cm) - Length 3.6 3.1 0.1 -Current Size (cm) - Width 1 0.8 0.1 -Current Size (cm) - Depth 0.1 0.1 0.1 -Total Square Cm 3.6 2.48 0.01 -Photo Taken Yes -Undermining/Tunneling No -Circular Undermining No -Classification - Thickness Full Thickness without Exposed Support Structure -Change in Wound Grade/Stage No -Exudate Amt Small Medium None Present -Exudate Type Serosanguineous Serosanguineous -Wound Margin Distinct, Flat & Intact Outline Attached -Granulation Amt Medium (34-66%) Large (67-100%) None Present (0 %) -Granulation Quality Pale,Dearborn Pale,Dearborn -Slough/Fibrin No -Necrosis Amt Medium (34-66%) Small (1-33%) None Present (0 %) -Necrotic Tissue Type Adherent Slough -Structure Exposed N/A -Texture (Nicolasa-wound Skin Appearance) Friable, Assessed Localized Edema ,Scarring -Moisture (Nicolasa-wound Skin Appearance) Dry/Scaly Assessed -Color (Nicolasa-wound Skin Appearance) Ecchymosis, Assessed Erythema -Temperature (Nicolasa-wound Skin No Abnormality No Abnormality Appearance) (Pt Warm) (Pt Warm) -Tenderness on Palpation (Nicolasa-wound No No No Skin Appearance) -Ulcer Cleansing Rinsed/ Irrigated with Saline -Foul Odor after Cleansing No No -Anesthetic Used 4% Lidocaine 4% Lidocaine Solution Solution #3 L Arm -Current Size (cm) - Length 21 0.1 4.2 -Current Size (cm) - Width 8 0.1 2.2 -Current Size (cm) - Depth 0.1 0.1 0.1 -Total Square Cm 168 0.01 9.24 -Photo Taken Yes -Tunneling No -Undermining/Tunneling No -Circular Undermining No -Exudate Amt Medium Medium Medium -Exudate Type Serosanguineous Serosanguineous Serosanguineous -Wound Margin Indistinct, Non Flat & Intact Distinct, -Visible Outline Attached -Granulation Amt Large (67-100%) Large (67-100%) -Granulation Quality Red Pale,Dearborn -Slough/Fibrin Yes -Necrosis Amt Small (1-33%) Small (1-33%) Medium (34-66%) -Necrotic Tissue Type Adherent Slough Adherent Slough Eschar -Structure Exposed N/A -Texture (Nicolasa-wound Skin Appearance) Friable, Assessed Assessed, Localized Edema Scarring -Moisture (Nicolasa-wound Skin Appearance) No Abnormality Assessed Assessed,Dry/ Scaly -Color (Nicolasa-wound Skin Appearance) Ecchymosis, Assessed Assessed, Erythema Hemosiderin Staining -Temperature (Nicolasa-wound Skin No Abnormality No Abnormality No Abnormality Appearance) (Pt Warm) (Pt Warm) (Pt Warm) -Tenderness on Palpation (Nicolasa-wound No No No Skin Appearance) -Ulcer Cleansing Wound Cleanser Rinsed/ Rinsed/ Irrigated with Irrigated with Saline Saline -Foul Odor after Cleansing No No -Anesthetic Used 4% Lidocaine 4% Lidocaine 5% Lidocaine Solution Solution Gel #2 Left dorsal foot -Current Size (cm) - Length 0.7 0.1 -Current Size (cm) - Width 0.6 0.1 -Current Size (cm) - Depth 0.1 0.1 -Total Square Cm 0.42 0.01 -Photo Taken No -Tunneling No -Undermining/Tunneling No -Circular Undermining No -Exudate Amt Medium None Present -Exudate Type Serosanguineous Serosanguineous -Wound Margin Distinct, Flat & Intact Outline Attached -Granulation Amt Medium (34-66%) Large (67-100%) -Granulation Quality [place]born Pale,Dearborn -Slough/Fibrin Yes -Necrosis Amt Small (1-33%) Small (1-33%) -Necrotic Tissue Type Adherent Slough Adherent Slough -Texture (Nicolasa-wound Skin Appearance) No Abnormality, Assessed Assessed -Moisture (Nicolasa-wound Skin Appearance) No Abnormality, Assessed, Assessed Maceration -Color (Nicolasa-wound Skin Appearance) No Abnormality, Assessed Assessed -Temperature (Nicolasa-wound Skin No Abnormality No Abnormality Appearance) (Pt Warm) (Pt Warm) -Tenderness on Palpation (Nicolasa-wound No No Skin Appearance) -Ulcer Cleansing soap and water Rinsed/ Irrigated with Saline -Foul Odor after Cleansing No -Anesthetic Used 5% Lidocaine 4% Lidocaine Gel Solution #1 Right Knee -Current Size (cm) - Length 4 3 4 -Current Size (cm) - Width 2 2.3 3 -Current Size (cm) - Depth 0.1 0.1 0.1 -Total Square Cm 8 6.9 12 -Photo Taken No -Tunneling No -Undermining/Tunneling No -Circular Undermining No -Exudate Amt Medium Medium Medium -Exudate Type Purulent Serosanguineous Serosanguineous -Wound Margin Flat & Intact Distinct, Outline Attached -Granulation Amt Medium (34-66%) None Present (0 %) -Granulation Quality Red -Slough/Fibrin No Yes -Necrosis Amt Large (67-100%) -Necrotic Tissue Type Adherent Slough -Texture (Nicolasa-wound Skin Appearance) No Abnormality, Assessed No Abnormality, Assessed Assessed -Moisture (Nicolasa-wound Skin Appearance) No Abnormality, Assessed, No Abnormality, Assessed Maceration Assessed -Color (Nicolasa-wound Skin Appearance) No Abnormality, Assessed No Abnormality, Assessed Assessed -Temperature (Nicolasa-wound Skin No Abnormality No Abnormality No Abnormality Appearance) (Pt Warm) (Pt Warm) (Pt Warm) -Tenderness on Palpation (Nicolasa-wound No No No Skin Appearance) -Ulcer Cleansing Not Cleansed Rinsed/ Rinsed/ Irrigated with Irrigated with Saline Saline -Foul Odor after Cleansing No -Anesthetic Used 4% Lidocaine 5% Lidocaine Solution Gel Right Calf (cm) 42 39 39 Right Ankle (cm) 23.6 25 24 Left Calf (cm) 36 36 35 Left Ankle (cm) 22.8 23 23.5 WC - Nurse 2 - General Ulcer CM Notes Start: 03/03/21 13:02 Freq: Status: Active Protocol: Activity Type Activity Date Activity User E-Sign Co-Sign Detail Recorded Client Recorded Date Recorded By Document 03/03/21 13:38 MW [id number] 03/03/21 13:56 MW Document 03/10/21 13:39 MT [id number] 03/10/21 13:57 MT Document 03/24/21 15:22 MW [id number] 03/24/21 15:24 MW 03/03/21 03/10/21 03/24/21 13:38 13:39 15:22 Wound Center Nurse 2 #5 R Upper Post arm -Time 13:53 13:39 15:22 -Correct Patient Yes Yes Yes -Correct Side, Site, Position Yes Yes Yes -Correct Procedure Yes Yes Yes -Procedure Performed Yes Yes No -Type of Procedure Debridement Debridement -Clinical Debridement Subcutaneous Subcutaneous -Tissue Removed Subcutaneous Subcutaneous -Post Debridement (cm) - Length 5.5 4.5 0 -Post Debridement (cm) - Width 4.0 3 0 -Post Debridement (cm) - Depth 0.2 0.1 0 -Total Square (Post) (cm) 22.00 13.5 0 -Area of Debridement (cm) - Length 5.5 4.5 -Area of Debridement (cm) - Width 4.0 3 -Total Square (Area) (cm) 22.00 13.5 -Tunneling No No -Undermining/Tunneling No No -Circular Undermining No No -Wound/Ulcer Outcome Not Healed Not Healed Healed- Epithelialized -Ulcer Cleansing Rinsed/ Rinsed/ Irrigated with Irrigated with Saline Saline -Foul Odor after Cleansing No No -Bioengineered Tissue No No -Bleeding Controlled with Pressure Pressure -Offloading No No -Treatment Response Procedure Procedure Tolerated Well Tolerated Well -Debridement - Subq, 1st 20sq cm Yes Yes -Debridement, SubQ, ea addt'l 20sq cm 6 4 or part thereof #4 R Elbow -Time 13:54 13:48 15:22 -Correct Patient Yes Yes Yes -Correct Side, Site, Position Yes Yes Yes -Correct Procedure Yes Yes Yes -Procedure Performed Yes Yes No -Type of Procedure Debridement Debridement -Clinical Debridement Subcutaneous Subcutaneous -Tissue Removed Subcutaneous Subcutaneous -Post Debridement (cm) - Length 4.0 4 0 -Post Debridement (cm) - Width 1.5 1 0 -Post Debridement (cm) - Depth 0.1 0.1 0 -Total Square (Post) (cm) 6.00 4 0 -Area of Debridement (cm) - Length 4.0 4 -Area of Debridement (cm) - Width 1.5 1 -Total Square (Area) (cm) 6.00 4 -Tunneling No No -Undermining/Tunneling No No -Circular Undermining No No -Wound/Ulcer Outcome Not Healed Not Healed Healed- Epithelialized -Ulcer Cleansing Rinsed/ Rinsed/ Irrigated with Irrigated with Saline Saline -Foul Odor after Cleansing No No -Bioengineered Tissue No No -Bleeding Controlled with Pressure Pressure -Offloading No No -Treatment Response Procedure Procedure Tolerated Well Tolerated Well -Debridement - Subq, 1st 20sq cm No No #3 L Arm -Time 13:54 13:49 15:23 -Correct Patient Yes Yes Yes -Correct Side, Site, Position Yes Yes Yes -Correct Procedure Yes Yes Yes -Procedure Performed Yes Yes Yes -Type of Procedure Debridement Debridement Debridement -Clinical Debridement Subcutaneous Subcutaneous Subcutaneous -Tissue Removed Subcutaneous Subcutaneous Subcutaneous -Post Debridement (cm) - Length 22.0 21 2.5 -Post Debridement (cm) - Width 5.0 3.0 0.5 -Post Debridement (cm) - Depth 0.1 0.1 0.1 -Total Square (Post) (cm) 110.00 63.0 1.25 -Area of Debridement (cm) - Length 22.0 21 2.5 -Area of Debridement (cm) - Width 5.0 3 0.5 -Total Square (Area) (cm) 110.00 63 1.25 -Tunneling No No No -Undermining/Tunneling No No No -Circular Undermining No No No -Wound/Ulcer Outcome Not Healed Not Healed Not Healed -Ulcer Cleansing Rinsed/ Rinsed/ Rinsed/ Irrigated with Irrigated with Irrigated with Saline Saline Saline -Foul Odor after Cleansing No No No -Bioengineered Tissue No No No -Bleeding Controlled with Pressure Pressure Pressure -Offloading No No No -Treatment Response Procedure Procedure Procedure Tolerated Well Tolerated Well Tolerated Well -Debridement - Subq, 1st 20sq cm No No Yes #2 Left dorsal foot -Time 13:44 13:45 -Correct Patient Yes Yes -Correct Side, Site, Position Yes Yes -Correct Procedure Yes Yes -Procedure Performed Yes No -Type of Procedure Debridement -Clinical Debridement Subcutaneous -Tissue Removed Subcutaneous -Post Debridement (cm) - Length 0.8 0 -Post Debridement (cm) - Width 0.9 0 -Post Debridement (cm) - Depth 0.1 0 -Total Square (Post) (cm) 0.72 0 -Area of Debridement (cm) - Length 0.8 -Area of Debridement (cm) - Width 0.9 -Total Square (Area) (cm) 0.72 -Tunneling No -Undermining/Tunneling No -Circular Undermining No -Wound/Ulcer Outcome Not Healed Healed- Epithelialized -Ulcer Cleansing Rinsed/ Irrigated with Saline -Foul Odor after Cleansing No -Bioengineered Tissue No -Bleeding Controlled with Pressure -Offloading No -Treatment Response Procedure Tolerated Well -Debridement - Subq, 1st 20sq cm No #1 Right Knee -Time 13:45 13:50 15:23 -Correct Patient Yes Yes Yes -Correct Side, Site, Position Yes Yes Yes -Correct Procedure Yes Yes Yes -Procedure Performed Yes Yes Yes -Type of Procedure Debridement Debridement Debridement -Clinical Debridement Subcutaneous Subcutaneous Subcutaneous -Tissue Removed Subcutaneous Subcutaneous Subcutaneous -Post Debridement (cm) - Length 2.5 1.5 1.5 -Post Debridement (cm) - Width 2.5 2.0 2.0 -Post Debridement (cm) - Depth 0.5 0.4 0.2 -Total Square (Post) (cm) 6.25 3.00 3.00 -Area of Debridement (cm) - Length 2.5 1.5 1.5 -Area of Debridement (cm) - Width 2.5 2.0 2.0 -Total Square (Area) (cm) 6.25 3.00 3.00 -Tunneling No No No -Undermining/Tunneling No No No -Circular Undermining No No No -Wound/Ulcer Outcome Not Healed Not Healed Not Healed -Ulcer Cleansing Rinsed/ Rinsed/ Rinsed/ Irrigated with Irrigated with Irrigated with Saline Saline Saline -Foul Odor after Cleansing No No No -Bioengineered Tissue Yes Yes No -Type of Bioengineered Tissue Apligraf Apligraf -Expiration Date 03/04/21 03/11/21 -Product Lot Number [id number] -Percent Used 14 7 -Lot number of Saline Used [id number] -Bleeding Controlled with Pressure Pressure Pressure -Other apligraf waste wasted 41SQcm 37.75 -Offloading No No No -Treatment Response Procedure Procedure Procedure Tolerated Well Tolerated Well Tolerated Well -Debridement - Subq, 1st 20sq cm No No No -Apply Skin Sub - 1st 25 sq cm - Legs 1 1 -Apligraf (per sq cm) 6.2 3 Pain Scale: 0-10 Numeric Is Patient Pain Free? Yes Yes WC - Nurse 3 - General Ulcer D/C NN Start: 03/03/21 13:02 Freq: Status: Active Protocol: Activity Type Activity Date Activity User E-Sign Co-Sign Detail Recorded Client Recorded Date Recorded By Document 03/03/21 14:29 ML [id number] 03/03/21 14:32 ML Document 03/10/21 14:17 AK [id number] 03/10/21 14:20 AK Document 03/24/21 15:35 AK [id number] 03/24/21 15:36 AK 03/03/21 03/10/21 03/24/21 14:29 14:17 15:35 Wound Care Nurse 3 #5 R Upper Post arm -Ulcer Cleansing Rinsed/ Rinsed/ Irrigated with Irrigated with Saline Saline -Foul Odor after Cleansing No -Primary Dressing Applied C Hydrogel ($) C Hydrogel ($) -Primary Dressing Covered/Secured with Dry Gauze & Dry Gauze & Roll Gauze, Roll Gauze Secured with Tape -Aquacel Extra 1 #4 R Elbow -Ulcer Cleansing Rinsed/ Rinsed/ Irrigated with Irrigated with Saline Saline -Foul Odor after Cleansing No No -Primary Dressing Applied Aquacel Extra -Other Dressing HYDROGEL -Primary Dressing Covered/Secured with Dry Gauze & Dry Gauze & Roll Gauze, Roll Gauze, Secured with Secured with Tape Tape -Aquacel Extra 0 #3 L Arm -Ulcer Cleansing Rinsed/ Rinsed/ Rinsed/ Irrigated with Irrigated with Irrigated with Saline Saline Saline -Foul Odor after Cleansing No No -Negative Pressure Wound Therapy N/A -Primary Dressing Applied C Hydrogel ($), NonAdherent NonAdherent Contact Layer, Contact Layer Promogran -Other Dressing HYDROGEL -Primary Dressing Covered/Secured with Dry Gauze & Dry Gauze & Roll Gauze, Roll Gauze Secured with Tape -Promogran 1 #2 Left dorsal foot -Ulcer Cleansing Rinsed/ Irrigated with Saline -Primary Dressing Applied Silvercel -Primary Dressing Covered/Secured with Dry Gauze -Silvercel 1 #1 Right Knee -Ulcer Cleansing Rinsed/ Rinsed/ Rinsed/ Irrigated with Irrigated with Irrigated with Saline Saline Saline -Foul Odor after Cleansing No -Negative Pressure Wound Therapy N/A -Primary Dressing Applied Aquacel Extra Aquacel Extra NonAdherent Contact Layer -Other Dressing 3M -Primary Dressing Covered/Secured with Dry Gauze -Other Covering TUBIGRIPS SIZE F APPLIED TO BILATERAL ARMS. -Aquacel Extra 1 0 Left -Lotion applied to leg before No compression wrap -Multi-Layered Wrap Application Multi-Layer Multi-Layer Multi-Layer Comp - Bilat ($ Comp - Bilat ($ Comp - Bilat ($ ) ) ) WC - Visit Discharge Discharge Condition Stable Stable Ambulatory Status Ambulatory Ambulatory, Walker Transportation Private [facility] Medication Reconcilliation completed & No provided to patient/care provider Clinical Summary of Care Provided Yes Yes Additional Wound Wound debrided: Right venous leg ulcer/left skin tear Type of Debridement: Excisional debridement Anesthesia Used: 4% Lidocaine Solution Depth: in the subcutaneous layer Percentage of wound debrided: 100 Instrument Used: 5mm curette Tissue Removed: Slough and devitalized tissue Severity: Fat Layer Exposed Amount of bleeding with debridement: Mild Bleeding Controlled with: Pressure Patient tolerated procedure: Patient tolerated procedure well Assessment/Plan Assessment/Plan (1) Venous stasis ulcer of right lower leg with edema of right lower leg: CODE(S): I83.019 - Varicose veins of right lower extremity with ulcer of unspecified site; I83.891 - Varicose veins of right lower extremity with other complications; L97.919 - Non-pressure chronic ulcer of unspecified part of right lower leg with unspecified severity; R60.9 - Edema, unspecified (2) Venous ulcer of right leg: CODE(S): I83.019 - Varicose veins of right lower extremity with ulcer of unspecified site; L97.919 - Non-pressure chronic ulcer of unspecified part of right lower leg with unspecified severity (3) Non-healing ulcer of left foot: CODE(S): L97.529 - Non-pressure chronic ulcer of other part of left foot with unspecified severity QUALIFIERS: Non-pressure ulcer stage: with fat layer exposed Qualified Code(s): L97.522 - Non-pressure chronic ulcer of other part of left foot with fat layer exposed (4) Bilateral lower extremity edema: CODE(S): R60.0 - Localized edema (5) CAD (coronary artery disease): CODE(S): I25.10 - Atherosclerotic heart disease of [place] coronary artery without angina pectoris (6) Hyperlipidemia: CODE(S): E78.5 - Hyperlipidemia, unspecified (7) Benign essential hypertension: CODE(S): I10 - Essential (primary) hypertension (8) Skin tear of left upper arm without complication: CODE(S): S41.112A - Laceration without foreign body of left upper arm, initial encounter (9) Skin tear of right upper arm without complication: CODE(S): S41.111A - Laceration without foreign body of right upper arm, initial encounter PLAN: Debridement performed today in clinic as annotated above. At home wound-care instructions: Apligraf not available today so patient will utilize Promogran cover with Adaptic over all ulcerations/skin tears and 3m wraps over bilateral lower extremities to be changed twice a week. Compression: 3m wraps for compression, patient states that he had vascular studies done at , will request. CircAid's will be ordered today to be utilized after patient's wounds have healed entirely. Off-loading: The patient was instructed to avoid pressure and friction on the affected areas. Reposition every 2 hours at minimum. Avoid prolonged standing and/or dangling of legs. When seated, feet should be elevated at chest level. Frequent ambulation is encouraged. Diet: Patient encouraged to increase protein intake while taking caution to avoid high carbohydrate and/or sugar intake. Patient is a non-smoker Labs/cultures/imaging:. Routine baseline lab work ordered, BNP ordered, both blood work is still pending at this time. Vascular studies ordered. Given the delayed wound healing and fact that this is a venous leg ulcer of the right lower extremity with a known history of PVD, an advanced skin substitute will be ordered. Follow-up: Return to clinic in 1 week for re-evaluation. Wound cultures were reviewed and showed rare bacteria, no indication for any changes in therapy at this time return sooner or report to the emergency room should symptoms worsen, or new symptoms arise. This note was generated with [employer] dictation software. It may contain incorrect words, spelling, and punctuation that were not noted in checking the note before signing. I have spent 35 minutes today reviewing labs, records, and history. Time includes coordinating care, interpretation of tests, and counseling the patient/family. This also includes time I spent with the patient for exam, treatment plan, and education as well as documenting clinical information in the electronic health record.
== END 2021-03-29 23:59 ==
LOC: WC 14:15
PROVIDERS: PCP Family Medicine; Visit Provider Nurse Practitioner Family
DX: I83.018 Varicose veins of right lower extremity with ulcer other part of lower leg (principal); L97.812 Non-pressure chronic ulcer of other part of right lower leg with fat layer exposed; L97.522 Non-pressure chronic ulcer of other part of left foot with fat layer exposed; I83.891 Varicose veins of right lower extremity with other complications; S41.112A Laceration without foreign body of left upper arm, initial encounter; S41.111A Laceration without foreign body of right upper arm, initial encounter; W01.0XXA Fall on same level from slipping, tripping and stumbling without subsequent striking against object, initial encounter; R60.9 Edema, unspecified; I25.10 Atherosclerotic heart disease of native coronary artery without angina pectoris; I73.9 Peripheral vascular disease, unspecified; I10 Essential (primary) hypertension; E78.5 Hyperlipidemia, unspecified; E03.9 Hypothyroidism, unspecified; Z79.82 Long term (current) use of aspirin; I25.2 Old myocardial infarction; Z86.718 Personal history of other venous thrombosis and embolism
CPT/HCPCS: 11042; 11045; 15271; 29581; 99213; Q4101; G0463

== ENCOUNTER 2021-04-07 13:00 | Outpatient (RCR) | payer MEDICARE, SELFPAY ==
[2021-03-30 00:38] VITALS: BP 165/82; PULSE 84; RESP 22; TEMP 36.2
[2021-03-31 13:28] VITALS: BP 174/70; PULSE 83; TEMP 36.2
--- NOTE | 2021-03-31 21:42 | PCM.WC.PN ---
History of Present Illness Date of Service: 03/31/21 Chief Complaint: Nonhealing venous leg ulcers right lower extremity and left foot History of Wound: This is an 80-year-old male who presents to the wound healing center today with complaint of nonhealing bilateral lower extremity ulcers. He does have a past medical history significant for CAD, hyperlipidemia, hypertension, PVD,and hypothyroidism. He states that his wounds to his bilateral lower extremities have been present since August 2020 after he was on a blood thinner for recurrent DVT and fell. He states that he was taken off the blood thinner and is now on aspirin 325 mg daily and has had issues with his ulcers to his lower extremities not healing. He also brings up worsening lower extremity edema that now goes up into his thighs. He states that he is more short of breath with exertion and he notes orthopnea as well. He denies any history of CHF but does state that he has followed up with cardiology in the past for a prior ID. He states he is consistent with his Lasix therapy. He denies any other acute concerns. For wound care he has been utilizing covering the site with Neosporin, gauze, and Umesh wraps. He notes a large amount of clear drainage. Past medical, family, and social history reviewed and not pertinent to the current visit and all other systems reviewed and negative with exception of those listed above. 03/03/2021?patient reports a mechanical fall where he tripped over a rug in his kitchen and bumped his bilateral arms and developed skin tears. He reports that this is his second mechanical fall over the past year. He states that he feels safe at home and does not have any issues caring for himself and does not feel it necessary that he go to an assisted living or senior living facility. Progress of Wound: The patient's left arm skin tear has healed and his right venous leg ulcer continues to improve in size, doing very well with Apligraf and compression. Fourth application of Apligraf was applied today. 41 units were wasted. Objective Data Objective Data Vital Signs: Vital Signs Temp Pulse Resp BP 97.2 F L 83 22 H 174/70 H 03/31/21 13:28 03/31/21 13:28 03/30/21 00:38 03/31/21 13:28 Charges/Coding Procedures Integumentary 150xxx-152xx: [id number] Skin sub graft trnk/arm/leg Physical Exam Const alert, oriented x3, no apparent distress, healthy appearing and well nourished General Appearance: cooperative Exam Limitations: no limitations HEENT normocephalic Head and Scalp: normal to inspection Mouth: oral and palatal mucosa normal Eyes General Eye: normal appearance of both eyes Resp normal air movement Effort and Inspection: able to speak in complete sentences Auscultation: crackles bilateral Cardio regular rate, regular rhythm, S1 normal heart sound, S2 normal heart sound, no murmurs and peripheral pulses 2+ throughout Palpation: normal PMI Rate: regular rate Heart Sounds: S1 normal and S2 normal GI normal to inspection, nondistended, normoactive bowel sounds, soft to palpation, non-tender and non-distended Palpation: soft Extremity normal to inspection and full ROM General Extremity: normal exam except as noted Skin Skin Narrative: 1+ pitting edema to the bilateral lower extremities which is below the knees, wounds present to the right lower extremity with small amount of adherent slough and there is no undermining present at this time, no surrounding erythema small amount of drainage. Patient did have multiple skin tears present on his left arm which has now healed, right elbow, and right upper posterior arm are both healed without any signs of infection. Chronic venous changes present to bilateral lower extremities as well. Dorsal pedis pulses present 2+ Neuro oriented x3 and moves all extremities Sensorium / Orientation: awake, alert, oriented to person, oriented to place and oriented to time Psych mental status grossly normal, thought process normal and denies hallucinations Appearance: grossly normal Attitude: calm Activity / Motor Behavior: appropriate eye contact Speech: normal speech Thought Process: normal thought process Thought Content: normal thought content Attention / Concentration: attention grossly intact Insight: insight good Judgement: judgement good Debridement Note Debridement Note Wound debrided: right VLU Laterality: Right Type of Debridement: Excisional debridement Anesthesia Used: 5% Lidocaine Gel Depth: in the subcutaneous layer Percentage of wound debrided: 100 Instrument Used: 5mm curette Tissue Removed: slough and devitalized tissue Severity: Fat Layer Exposed Amount of bleeding with debridement: Mild Bleeding Controlled with: Pressure Patient tolerated procedure: Patient tolerated procedure well Post-Debridement Measurements and Additional Note: Post-Debridement Measurements/Treatment CEDRIC - Nurse 1 - General Ulcer Assessment Start: 03/31/21 13:28 Freq: Status: Active Protocol: WC.LOWEXT Activity Type Activity Date Activity User E-Sign Co-Sign Detail Recorded Client Recorded Date Recorded By Document 03/31/21 13:28 LA [id number] 03/31/21 13:30 LA 03/31/21 13:28 - Today's Visit Information Type of service Follow-up Visit (Physician/LABVIEW PROGRAMMER ) Arrival Mode Ambulatory, Walker Patient Identification Verified (Name & Yes ) Patient Requires Transmission-Based No Precautions Vital Signs Temperature (97.8 F-99.1 F) 97.2 F L Temperature Source Temporal Pulse Rate (60-100) 83 Pulse Location Monitor Blood Pressure (90/60-120/80) 174/70 H Blood Pressure Mean (mm Hg) 104 Source Monitor History Since Last Visit- (Skip if this is Patient's initial visit) Have you changed medications since your No last visit? Any new allergies or adverse reactions No Had a fall/change in ADL's that may No increase risk of falls Signs or symptoms of abuse and/or No neglect since last visit Have you been in the hospital since your No last visit? Has dressing in place as prescribed Yes Has compression in place as prescribed Yes Has offloadiing in place as prescribed No Experienced any changes in pain level or No management Left Footwear Regular Shoe Right Footwear Regular Shoe - Nurse 1 - General Ulcer Measurement Start: 03/31/21 13:28 Freq: Status: Active Protocol: Activity Type Activity Date Activity User E-Sign Co-Sign Detail Recorded Client Recorded Date Recorded By Document 03/31/21 13:28 PERICO [id number] 03/31/21 13:30 LA 03/31/21 13:28 Wound Center Nurse 1 #3 L Arm -Current Size (cm) - Length 0.1 -Current Size (cm) - Width 0.1 -Current Size (cm) - Depth 0.1 -Total Square Cm 0.01 -Photo Taken No -Undermining/Tunneling No -Circular Undermining No -Change in Wound Grade/Stage No -Exudate Amt None Present -Granulation Quality N/A -Slough/Fibrin No -Necrosis Amt None Present (0 %) -Structure Exposed N/A -Texture (Nicolasa-wound Skin Appearance) Assessed, Scarring -Moisture (Nicolasa-wound Skin Appearance) Assessed,Dry/ Scaly -Color (Nicolasa-wound Skin Appearance) No Abnormality, Assessed -Anesthetic Used 5% Lidocaine Gel #1 Right Knee -Combined with other wound No -Current Size (cm) - Length 1 -Current Size (cm) - Width 0.5 -Current Size (cm) - Depth 0.1 -Total Square Cm 0.5 -Photo Taken No -Epithelialization None Present -Tunneling No -Undermining/Tunneling No -Circular Undermining No -Exudate Amt Medium -Exudate Type Purulent -Wound Margin Distinct, Outline Attached -Granulation Amt None Present (0 %) -Necrosis Amt Medium (34-66%) -Necrotic Tissue Type Adherent Slough -Structure Exposed N/A -Texture (Nicolasa-wound Skin Appearance) No Abnormality, Assessed -Moisture (Nicolasa-wound Skin Appearance) No Abnormality, Assessed -Color (Nicolasa-wound Skin Appearance) No Abnormality, Assessed -Temperature (Nicolasa-wound Skin No Abnormality Appearance) (Pt Warm) -Tenderness on Palpation (Nicolasa-wound No Skin Appearance) -Ulcer Cleansing Rinsed/ Irrigated with Saline -Anesthetic Used 4% Lidocaine Solution WC - Nurse 2 - General Ulcer CM Notes Start: 03/31/21 13:28 Freq: Status: Active Protocol: Activity Type Activity Date Activity User E-Sign Co-Sign Detail Recorded Client Recorded Date Recorded By Document 03/31/21 13:49 MW [email or web address] 03/31/21 13:59 MW 03/31/21 13:49 Wound Center Nurse 2 #3 L Arm -Time 13:52 -Correct Patient Yes -Correct Side, Site, Position Yes -Correct Procedure Yes -Procedure Performed No -Post Debridement (cm) - Length 0 -Post Debridement (cm) - Width 0 -Post Debridement (cm) - Depth 0 -Total Square (Post) (cm) 0 -Wound/Ulcer Outcome Healed- Epithelialized #1 Right Knee -Time 13:56 -Correct Patient Yes -Correct Side, Site, Position Yes -Correct Procedure Yes -Procedure Performed Yes -Type of Procedure Debridement -Clinical Debridement Subcutaneous -Tissue Removed Subcutaneous -Post Debridement (cm) - Length 2.0 -Post Debridement (cm) - Width 1.5 -Post Debridement (cm) - Depth 0.1 -Total Square (Post) (cm) 3.00 -Area of Debridement (cm) - Length 2.0 -Area of Debridement (cm) - Width 1.5 -Total Square (Area) (cm) 3.00 -Tunneling No -Undermining/Tunneling No -Circular Undermining No -Wound/Ulcer Outcome Not Healed -Ulcer Cleansing Rinsed/ Irrigated with Saline -Foul Odor after Cleansing No -Bioengineered Tissue Yes -Type of Bioengineered Tissue Apligraf -Expiration Date 04/09/21 -Bleeding Controlled with NA -Offloading No -Treatment Response Procedure Tolerated Well -Debridement - Subq, 1st 20sq cm No -Apply Skin Sub - 1st 25 sq cm - Legs 1 -Apligraf (per sq cm) 3 Pain Scale: 0-10 Numeric Is Patient Pain Free? Yes Assessment/Plan Assessment/Plan (1) Venous stasis ulcer of right lower leg with edema of right lower leg: CODE(S): I83.019 - Varicose veins of right lower extremity with ulcer of unspecified site; I83.891 - Varicose veins of right lower extremity with other complications; L97.919 - Non-pressure chronic ulcer of unspecified part of right lower leg with unspecified severity; R60.9 - Edema, unspecified (2) Venous ulcer of right leg: CODE(S): I83.019 - Varicose veins of right lower extremity with ulcer of unspecified site; L97.919 - Non-pressure chronic ulcer of unspecified part of right lower leg with unspecified severity (3) Non-healing ulcer of left foot: CODE(S): L97.529 - Non-pressure chronic ulcer of other part of left foot with unspecified severity QUALIFIERS: Non-pressure ulcer stage: with fat layer exposed Qualified Code(s): L97.522 - Non-pressure chronic ulcer of other part of left foot with fat layer exposed (4) Bilateral lower extremity edema: CODE(S): R60.0 - Localized edema (5) CAD (coronary artery disease): CODE(S): I25.10 - Atherosclerotic heart disease of [place] coronary artery without angina pectoris (6) Hyperlipidemia: CODE(S): E78.5 - Hyperlipidemia, unspecified (7) Benign essential hypertension: CODE(S): I10 - Essential (primary) hypertension (8) Skin tear of left upper arm without complication: CODE(S): S41.112A - Laceration without foreign body of left upper arm, initial encounter (9) Skin tear of right upper arm without complication: CODE(S): S41.111A - Laceration without foreign body of right upper arm, initial encounter PLAN: Debridement performed today in clinic as annotated above. At home wound-care instructions: Apligraf #4 applied and covered with adaptic and steris, 41 units wasted based on wound size and 3m wraps over bilateral lower extremities to be changed twice a week. Compression: 3m wraps for compression, patient states that he had vascular studies done at , will request. CircAid's will be ordered today to be utilized after patient's wounds have healed entirely. Off-loading: The patient was instructed to avoid pressure and friction on the affected areas. Reposition every 2 hours at minimum. Avoid prolonged standing and/or dangling of legs. When seated, feet should be elevated at chest level. Frequent ambulation is encouraged. Diet: Patient encouraged to increase protein intake while taking caution to avoid high carbohydrate and/or sugar intake. Patient is a non-smoker Labs/cultures/imaging:. Routine baseline lab work ordered, BNP ordered, both blood work is still pending at this time. Vascular studies ordered. Given the delayed wound healing and fact that this is a venous leg ulcer of the right lower extremity with a known history of PVD, an advanced skin substitute will be ordered. Follow-up: Return to clinic in 1 week for re-evaluation. Wound cultures were reviewed and showed rare bacteria, no indication for any changes in therapy at this time return sooner or report to the emergency room should symptoms worsen, or new symptoms arise. This note was generated with [employer] dictation software. It may contain incorrect words, spelling, and punctuation that were not noted in checking the note before signing. I have spent 35 minutes today reviewing labs, records, and history. Time includes coordinating care, interpretation of tests, and counseling the patient/family. This also includes time I spent with the patient for exam, treatment plan, and education as well as documenting clinical information in the electronic health record.
[2021-04-07 13:15] VITALS: BP 157/77; PULSE 77; TEMP 36.4
--- NOTE | 2021-04-07 13:52 | WC ---
adaptic and gauze to right knee circaids bilateral at 30/40 mmhg.pt instructed on applying circaids.
--- NOTE | 2021-04-07 20:38 | PCM.WC.PN ---
History of Present Illness Date of Service: 04/07/21 Chief Complaint: Nonhealing venous leg ulcers right lower extremity and left foot History of Wound: This is an 80-year-old male who presents to the wound healing center today with complaint of nonhealing bilateral lower extremity ulcers. He does have a past medical history significant for CAD, hyperlipidemia, hypertension, PVD,and hypothyroidism. He states that his wounds to his bilateral lower extremities have been present since August 2020 after he was on a blood thinner for recurrent DVT and fell. He states that he was taken off the blood thinner and is now on aspirin 325 mg daily and has had issues with his ulcers to his lower extremities not healing. He also brings up worsening lower extremity edema that now goes up into his thighs. He states that he is more short of breath with exertion and he notes orthopnea as well. He denies any history of CHF but does state that he has followed up with cardiology in the past for a prior NE. He states he is consistent with his Lasix therapy. He denies any other acute concerns. For wound care he has been utilizing covering the site with Neosporin, gauze, and Umesh wraps. He notes a large amount of clear drainage. Past medical, family, and social history reviewed and not pertinent to the current visit and all other systems reviewed and negative with exception of those listed above. 03/03/2021?patient reports a mechanical fall where he tripped over a rug in his kitchen and bumped his bilateral arms and developed skin tears. He reports that this is his second mechanical fall over the past year. He states that he feels safe at home and does not have any issues caring for himself and does not feel it necessary that he go to an assisted living or halfway facility. Progress of Wound: The patient's left arm skin tear has healed and his right venous leg ulcer is entirely healed as well, patient did very well with Apligraf and compression. No new concerns and no new signs of infection at this time. He does bring with him his CircAid's today as well. Objective Data Objective Data Vital Signs: Vital Signs Temp Pulse Resp BP 97.6 F L 77 22 H 157/77 H 04/07/21 13:15 04/07/21 13:15 03/30/21 00:38 04/07/21 13:15 Charges/Coding Visit Charges Office Visits / Consults: [id number] OV L3 Est Physical Exam Const alert, oriented x3, no apparent distress, healthy appearing and well nourished General Appearance: cooperative Exam Limitations: no limitations HEENT normocephalic Head and Scalp: normal to inspection Mouth: oral and palatal mucosa normal Eyes General Eye: normal appearance of both eyes Resp normal air movement Effort and Inspection: able to speak in complete sentences Auscultation: crackles bilateral Cardio regular rate, regular rhythm, S1 normal heart sound, S2 normal heart sound, no murmurs and peripheral pulses 2+ throughout Palpation: normal PMI Rate: regular rate Heart Sounds: S1 normal and S2 normal GI normal to inspection, nondistended, normoactive bowel sounds, soft to palpation, non-tender and non-distended Palpation: soft Extremity normal to inspection and full ROM General Extremity: normal exam except as noted Skin Skin Narrative: 1+ pitting edema to the bilateral lower extremities which is below the knees, all of the patient's ulcers are now healed without any signs of infection at this time, chronic venous changes present to bilateral lower extremities as well. Dorsal pedis pulses present 2+ Neuro oriented x3 and moves all extremities Sensorium / Orientation: awake, alert, oriented to person, oriented to place and oriented to time Psych mental status grossly normal, thought process normal and denies hallucinations Appearance: grossly normal Attitude: calm Activity / Motor Behavior: appropriate eye contact Speech: normal speech Thought Process: normal thought process Thought Content: normal thought content Attention / Concentration: attention grossly intact Insight: insight good Judgement: judgement good Assessment/Plan Assessment/Plan (1) Venous stasis ulcer of right lower leg with edema of right lower leg: CODE(S): I83.019 - Varicose veins of right lower extremity with ulcer of unspecified site; I83.891 - Varicose veins of right lower extremity with other complications; L97.919 - Non-pressure chronic ulcer of unspecified part of right lower leg with unspecified severity; R60.9 - Edema, unspecified (2) Venous ulcer of right leg: CODE(S): I83.019 - Varicose veins of right lower extremity with ulcer of unspecified site; L97.919 - Non-pressure chronic ulcer of unspecified part of right lower leg with unspecified severity (3) Non-healing ulcer of left foot: CODE(S): L97.529 - Non-pressure chronic ulcer of other part of left foot with unspecified severity QUALIFIERS: Non-pressure ulcer stage: with fat layer exposed Qualified Code(s): L97.522 - Non-pressure chronic ulcer of other part of left foot with fat layer exposed (4) Bilateral lower extremity edema: CODE(S): R60.0 - Localized edema (5) CAD (coronary artery disease): CODE(S): I25.10 - Atherosclerotic heart disease of [place] coronary artery without angina pectoris (6) Hyperlipidemia: CODE(S): E78.5 - Hyperlipidemia, unspecified (7) Benign essential hypertension: CODE(S): I10 - Essential (primary) hypertension (8) Skin tear of left upper arm without complication: CODE(S): S41.112A - Laceration without foreign body of left upper arm, initial encounter (9) Skin tear of right upper arm without complication: CODE(S): S41.111A - Laceration without foreign body of right upper arm, initial encounter PLAN: No debridement indicated today. At home wound-care instructions: Proper the patient's recently healed wounds with Adaptic and gauze for protection. Bilateral CircAid's to be worn daily for compression Off-loading: The patient was instructed to avoid pressure and friction on the affected areas. Reposition every 2 hours at minimum. Avoid prolonged standing and/or dangling of legs. When seated, feet should be elevated at chest level. Frequent ambulation is encouraged. Diet: Patient encouraged to increase protein intake while taking caution to avoid high carbohydrate and/or sugar intake. Patient is a non-smoker Follow-up: Patient to be discharged from the wound healing center today. Follow-up in the future if new wounds occur. This note was generated with [employer] dictation software. It may contain incorrect words, spelling, and punctuation that were not noted in checking the note before signing. I have spent 35 minutes today reviewing labs, records, and history. Time includes coordinating care, interpretation of tests, and counseling the patient/family. This also includes time I spent with the patient for exam, treatment plan, and education as well as documenting clinical information in the electronic health record.
== END 2021-04-07 14:07 | disposition home or self-care (01) ==
LOC: WC 13:00
PROVIDERS: PCP Family Medicine; Visit Provider Nurse Practitioner Family
DX: I83.018 Varicose veins of right lower extremity with ulcer other part of lower leg (principal); L97.812 Non-pressure chronic ulcer of other part of right lower leg with fat layer exposed; L97.522 Non-pressure chronic ulcer of other part of left foot with fat layer exposed; I73.9 Peripheral vascular disease, unspecified; R60.0 Localized edema; I25.10 Atherosclerotic heart disease of native coronary artery without angina pectoris; I10 Essential (primary) hypertension; E78.5 Hyperlipidemia, unspecified; E03.9 Hypothyroidism, unspecified; Z79.82 Long term (current) use of aspirin; Z79.899 Other long term (current) drug therapy; I25.2 Old myocardial infarction; Z86.718 Personal history of other venous thrombosis and embolism
CPT/HCPCS: 15271; 99213; Q4101; G0463